=== PATIENT | female | born 1995 | race Caucasian/White ===

== ENCOUNTER 2017-08-08 15:32 | Emergency (ER) | payer OTHER ==
[2017-08-08 15:47] VITALS: BP 120/80; PULSE 85; RESP 16; TEMP 97.6
[2017-08-08] MEDS ORDERED: DIPH,PERTUS(ACELL)TETVAC-LF 0.5 ML VIAL IM ONE (15:51)
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
== END 2017-08-08 16:12 | disposition home or self-care (01) ==
LOC: EC 15:32
DX: T24.231A Burn of second degree of right lower leg, initial encounter (principal); Z23 Encounter for immunization; F17.200 Nicotine dependence, unspecified, uncomplicated; X19.XXXA Contact with other heat and hot substances, initial encounter; Y92.89 Other specified places as the place of occurrence of the external cause
CPT/HCPCS: 90471; 90715; 99283

== ENCOUNTER 2018-03-31 05:12 | Emergency (ER) | payer OTHER ==
[2018-03-31 05:20] VITALS: TEMP 97.6
[2018-03-31] MEDS ORDERED: SODIUM CHLORIDE 0.9% 1,000 ML IV STA (05:22)
[2018-03-31] MEDS ORDERED: LORazepam 2 MG/ML INJ IV STA (05:41)
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
[2018-03-31 06:02] LABS: Alcohol <10 mg/dL; Anion Gap 13 mmol/L; Blood Urea Nitrogen 14 mg/dL (7-17); Calcium 10.3 mg/dL (8.4-10.2); Carbon Dioxide 21 mmol/L (22-30); Chloride 107 mmol/L (98-107); Glucose 119 mg/dL (74-99); Potassium 3.5 mmol/L (3.5-5.1); Sodium 141 mmol/L (137-145)
[2018-03-31 06:45] LABS: Amphetamine Screen,Urine Not Detected (NotDetected); Barbiturate Screen,Urine Not Detected (NotDetected); Benzodiazepines Screen,Urine Not Detected (NotDetected); Cocaine Screen,Urine Not Detected (NotDetected); Methadone Screen, Urine Not Detected (NotDetected); Opiate Screen,Urine Not Detected (NotDetected); Oxycodone Screen, Urine Not Detected (NotDetected); Phencyclidine Screen,Urine Not Detected (NotDetected); Tricyclic Antidepressant,Urine Not Detected (NotDetected); Urn Cannabinoid Scrn Detected (NotDetected)
[2018-03-31 06:50] VITALS: BP 149/96; PULSE 75; RESP 16
== END 2018-03-31 08:23 | disposition home or self-care (01) ==
LOC: EC 05:12
DX: T43.641A Poisoning by ecstasy, accidental (unintentional), initial encounter (principal); R20.0 Anesthesia of skin; R51 Headache; R00.0 Tachycardia, unspecified; F17.200 Nicotine dependence, unspecified, uncomplicated
CPT/HCPCS: 99284 ×2; 96374 ×2; 96361 ×2; 96360; 99283; 36415; 93005; 80053; 80048; 85025; 81001; 81025; 80306; 87086; 87077; 87186; G0480; J2060; 80320

== ENCOUNTER 2018-03-31 14:28 | Emergency (ER) | payer OTHER ==
[2018-03-31 14:38] VITALS: BP 135/92; PULSE 128; RESP 18; TEMP 98
[2018-03-31] MEDS ORDERED: ALPRAZolam 1 MG TAB PO STA (14:50)
[2018-03-31] MEDS ORDERED: SODIUM CHLORIDE 0.9% 1,000 ML IV ONE (15:12)
[2018-03-31 15:32] LABS: Basophils # (A) 0.1 k/uL (0-0.2); Basophils % (A) 0 %; Eosinophils # (A) 0.1 k/uL (0-0.7); Eosinophils % (A) 1 %; HCT 43.7 % (34.0-46.0); HGB 14.4 gm/dL (11.4-16.0); Lymphocytes # (A) 1.7 k/uL (1.0-4.8); Lymphocytes % (A) 11 %; MCH 28.8 pg (25.0-35.0); MCHC 32.9 g/dL (31.0-37.0); MCV 87.4 fL (80.0-100.0); Mean Platelet Volume 6.9; Monocytes # (A) 1.1 k/uL (0-1.0); Monocytes % (A) 7 %; Neutrophils # (A) 11.8 k/uL (1.3-7.7); Neutrophils % (A) 79 %; Platelet Count 365 k/uL (150-450); RBC 5.01 m/uL (3.80-5.40); RDW 13.5 % (11.5-15.5); WBC 14.9 k/uL (4.0-11.0)
[2018-03-31 15:42] LABS: ALT 33 U/L (9-52); AST 30 U/L (14-36); Albumin 5.4 g/dL (3.5-5.0); Alkaline Phosphatase 65 U/L (38-126); Anion Gap 13 mmol/L; Blood Urea Nitrogen 9 mg/dL (7-17); Calcium 10.9 mg/dL (8.4-10.2); Carbon Dioxide 21 mmol/L (22-30); Chloride 106 mmol/L (98-107); Glucose 96 mg/dL (74-99); Potassium 3.7 mmol/L (3.5-5.1); Sodium 140 mmol/L (137-145); Total Bilirubin 1.3 mg/dL (0.2-1.3)
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
[2018-03-31 16:37] LABS: Appearance,Urine Cloudy (Clear); Bacteria,Urine Moderate /hpf; Bilirubin,Urine Negative (Negative); Blood,Urine Negative (Negative); Color,Urine Light Yellow; Glucose,Urine (UA) Negative (Negative); Hyaline Casts,Urine 1 /lpf (0-2); Ketones,Urine Negative (Negative); Leukocyte Esterase,Urine Negative (Negative); Nitrite,Urine Negative (Negative); Protein,Urine Negative (Negative); RBC,Urine <1 /hpf (0-5); Specific Gravity,Urine 1.007 (1.001-1.035); Squamous Epithelial Cell,Urine 3 /hpf (0-4); Urobilinogen,Urine <2.0 mg/dL (<2.0); WBC,Urine 6 /hpf (0-5)
== END 2018-03-31 17:10 | disposition home or self-care (01) ==
LOC: EC 14:28
DX: F15.10 Other stimulant abuse, uncomplicated (principal); D72.829 Elevated white blood cell count, unspecified; F41.9 Anxiety disorder, unspecified; F17.200 Nicotine dependence, unspecified, uncomplicated
CPT/HCPCS: 36415; 80053; 81001; 85025; 87086; 93005; 96360; 96361; 99283

== ENCOUNTER 2019-04-22 21:51 | Emergency (ER) | payer OTHER ==
[2019-04-22 22:42] LABS: Appearance,Urine Turbid (Clear); Bacteria,Urine Many /hpf; Bilirubin,Urine Negative (Negative); Blood,Urine Moderate (Negative); Color,Urine Yellow; Glucose,Urine (UA) Negative (Negative); Ketones,Urine Negative (Negative); Leukocyte Esterase,Urine Large (Negative); Mucus,Urine Many /hpf; Nitrite,Urine Positive (Negative); Protein,Urine 3+ (Negative); RBC,Urine 84 /hpf (0-5); Squamous Epithelial Cell,Urine 3 /hpf (0-4); Urobilinogen,Urine <2.0 mg/dL (<2.0); WBC,Urine >182 /hpf (0-5)
[2019-04-22] MEDS ORDERED: ACETAMINOPHEN TAB 325 MG TAB PO STA (23:41)
--- NOTE | 2019-04-22 23:43 | US ---
EXAMINATION TYPE: US renals and bladder DATE OF EXAM: 04/22/2019 COMPARISON: CT 2013 CLINICAL HISTORY: RUQ/flank pain. RUQ/flank pain x 11.5 hours. Hx kidney stones. Patient is 17 weeks . EXAM MEASUREMENTS: Right Kidney: 12.2 x 6.9 x 6.5 cm Left Kidney: 12.2 x 5.5 x 5.2 cm Right Kidney: Measures upper limits of normal. There appears to be hydronephrosis with anechoic area medially. Left Kidney: Measures upper limits of normal. Anechoic area seen lower pole: 1.2 x 1.1 x 1.1 cm. Bladder: Not fully distended. Appears to be anechoic. Bilateral Jets seen: No IMPRESSION: There is moderate right-sided hydronephrosis. No evidence of a solid renal mass. 10 mm cortical cyst lower pole left kidney. No renal atrophy.
--- NOTE | 2019-04-22 23:49 | ED ---
Abdominal Pain HPI - General Chief Complaint: Abdominal Pain Stated Complaint: 17 weeks prg/abd pain Time Seen by Provider: 04/22/19 23:33 Source: patient Mode of arrival: ambulatory Limitations: no limitations - History of Present Illness Complaint: flank pain Onset/Timin -: hour(s) Location: R flank Radiation: none Migration to: no migration Severity: moderate Quality: aching Consistency: constant Improves With: nothing Worsens With: nothing Associated Symptoms: dysuria - Related Data Patient : Yes Number of weeks : 17 Previous Rx's Medication Instructions Recorded Cephalexin [Keflex] 500 mg PO Q6HR #28 cap 04/23/19 Allergies Allergy/AdvReac Type Severity Reaction Status Date / Time No Known Allergies Allergy Verified 04/22/19 22:14 Review of Systems ROS Statement: Those systems with pertinent positive or pertinent negative responses have been documented in the HPI. ROS Other: All systems not noted in ROS Statement are negative. Constitutional: Denies: fever, chills Respiratory: Denies: cough, dyspnea Cardiovascular: Denies: chest pain, palpitations, edema Gastrointestinal: Reports: as per HPI, abdominal pain. Denies: nausea, vomitin g, diarrhea, constipation, melena, hematochezia Genitourinary: Reports: dysuria, frequency. Denies: hematuria, discharge, abnormal menses Musculoskeletal: Denies: back pain Skin: Denies: rash Neurological: Denies: headache, weakness, numbness Past Medical History Past Medical History: No Reported History Additional Past Medical History / Comment(s): kidney stones, History of Any Multi-Drug Resistant Organisms: None Reported Past Surgical History: Section Past Anesthesia/Blood Transfusion Reactions: No Reported Reaction Past Psychological History: No Psychological Hx Reported Smoking Status: Former smoker Past Alcohol Use History: None Reported Past Drug Use History: Marijuana - Past Family History Mother History Unknown: Yes General Exam Limitations: no limitations General appearance: alert, in no apparent distress Head exam: Present: atraumatic, normocephalic Eye exam: Present: normal appearance. Absent: scleral icterus, conjunctival injection ENT exam: Present: normal oropharynx Respiratory exam: Present: normal lung sounds bilaterally. Absent: respiratory distress, wheezes, rales, rhonchi, stridor Cardiovascular Exam: Present: regular rate, normal rhythm, normal heart sounds, systolic murmur. Absent: diastolic murmur, rubs, gallop GI/Abdominal exam: Present: soft, normal bowel sounds. Absent: distended, tenderness, guarding, rebound, rigid, organomegaly, mass, pulsatile mass, hernia Extremities exam: Present: normal inspection, normal capillary refill. Absent: pedal edema, calf tenderness Back exam: Present: normal inspection, CVA tenderness (R). Absent: CVA tenderness (L) Neurological exam: Present: alert, normal gait Skin exam: Present: warm, dry, intact, normal color. Absent: rash Course Vital Signs 04/22/19 04/23/19 22:12 00:09 Temperature 98.3 F 98.4 F Pulse Rate 100 98 Respiratory 18 16 Rate Blood Pressure 129/76 128/83 O2 Sat by Pulse 99 97 Oximetry Medical Decision Making - Lab Data Result diagrams: 04/22/19 23:50 04/22/19 23:50 Lab Results 04/22/19 04/22/19 04/22/19 Range/Units 22:15 23:50 23:50 WBC 14.7 H (3.8-10.6) k/uL RBC 3.93 (3.80-5.40) m/uL Hgb 12.3 (11.4-16.0) gm/dL Hct 34.7 (34.0-46.0) % MCV 88.2 (80.0-100.0) fL MCH 31.2 (25.0-35.0) pg MCHC 35.4 (31.0-37.0) g/dL RDW 13.6 (11.5-15.5) % Plt Count 278 (150-450) k/uL Neutrophils % 79 % Lymphocytes % 13 % Monocytes % 5 % Eosinophils % 2 % Basophils % 0 % Neutrophils # 11.5 H (1.3-7.7) k/uL Lymphocytes # 1.9 (1.0-4.8) k/uL Monocytes # 0.7 (0-1.0) k/uL Eosinophils # 0.2 (0-0.7) k/uL Basophils # 0.0 (0-0.2) k/uL Sodium 132 L (137-145) mmol/L Potassium 3.8 (3.5-5.1) mmol/L Chloride 105 (98-107) mmol/L Carbon Dioxide 20 L (22-30) mmol/L Anion Gap 7 mmol/L BUN 8 (7-17) mg/dL Creatinine 0.41 L (0.52-1.04) mg/dL Est GFR (CKD-EPI)AfAm >90 (>60 ml/min/1.73 sqM) Est GFR (CKD-EPI)NonAf >90 (>60 ml/min/1.73 sqM) Glucose 102 H (74-99) mg/dL Calcium 9.1 (8.4-10.2) mg/dL Total Bilirubin 0.4 (0.2-1.3) mg/dL AST 21 (14-36) U/L ALT 27 (4-34) U/L Alkaline Phosphatase 76 (38-126) U/L Total Protein 7.2 (6.3-8.2) g/dL Albumin 4.0 (3.5-5.0) g/dL Amylase <30 L (30-110) U/L Lipase 46 (23-300) U/L Urine Color Yellow Urine Appearance Turbid H (Clear) Urine pH 6.0 (5.0-8.0) Ur Specific [place] 1.020 (1.001-1.035) Urine Protein 3+ H (Negative) Urine Glucose (UA) Negative (Negative) Urine Ketones Negative (Negative) Urine Blood Moderate H (Negative) Urine Nitrite Positive H (Negative) Urine Bilirubin Negative (Negative) Urine Urobilinogen <2.0 (<2.0) mg/dL Ur Leukocyte Esterase Large H (Negative) Urine RBC 84 H (0-5) /hpf Urine WBC >182 H (0-5) /hpf Urine WBC Clumps Many H (None) /hpf Ur Squamous Epith Cells 3 (0-4) /hpf Urine Bacteria Many H (None) /hpf Urine Mucus Many H (None) /hpf Disposition Clinical Impression: , Urinary tract infection Disposition: HOME SELF-CARE Condition: Good Instructions (If sedation given, give patient instructions): Urinary Tract Infe ction in (ED) Prescriptions: Cephalexin [Keflex] 500 mg PO Q6HR #28 cap Is patient prescribed a controlled substance at d/c from ED?: No Referrals: Dorinda Gonzalez MD [Primary Care Provider] - 1-2 days Vasquez Tapia MD [STAFF PHYSICIAN] - 1-2 days
[2019-04-22 23:56] LABS: Basophils % (A) 0 %; Eosinophils # (A) 0.2 k/uL (0-0.7); Eosinophils % (A) 2 %; HCT 34.7 % (34.0-46.0); HGB 12.3 gm/dL (11.4-16.0); Lymphocytes # (A) 1.9 k/uL (1.0-4.8); Lymphocytes % (A) 13 %; MCH 31.2 pg (25.0-35.0); MCHC 35.4 g/dL (31.0-37.0); MCV 88.2 fL (80.0-100.0); Mean Platelet Volume 7.1; Monocytes # (A) 0.7 k/uL (0-1.0); Monocytes % (A) 5 %; Neutrophils # (A) 11.5 k/uL (1.3-7.7); Neutrophils % (A) 79 %; Platelet Count 278 k/uL (150-450); RBC 3.93 m/uL (3.80-5.40); RDW 13.6 % (11.5-15.5); WBC 14.7 k/uL (3.8-10.6)
[2019-04-23 00:05] LABS: ALT 27 U/L (4-34); AST 21 U/L (14-36); African American GFR (CKD) >90 (>60 ml/min/1.73 sqM); Alkaline Phosphatase 76 U/L (38-126); Amylase <30 U/L (30-110); Anion Gap 7 mmol/L; Blood Urea Nitrogen 8 mg/dL (7-17); Calcium 9.1 mg/dL (8.4-10.2); Carbon Dioxide 20 mmol/L (22-30); Chloride 105 mmol/L (98-107); Glucose 102 mg/dL (74-99); Non-African American GFR(CKD) >90 (>60 ml/min/1.73 sqM); Potassium 3.8 mmol/L (3.5-5.1); Sodium 132 mmol/L (137-145); Total Bilirubin 0.4 mg/dL (0.2-1.3); Total Protein 7.2 g/dL (6.3-8.2)
[2019-04-23 00:09] VITALS: BP 128/83; PULSE 98; RESP 16; TEMP 98.4
--- NOTE | 2019-04-23 06:56 | P.PN ---
Progress Note - Text Progress Note Date: 04/23/19 Please see dictated emergency room note on this patient. I was contacted by the emergency room physician in consultation for possible pyelonephritis. Patient is a 23-year-old 2 para 1 female who apparently has not sought any care who presented in the emergency department with complaints of back pain. Patient's urinalysis was suggestive of a urinary tract infection. Patient is afebrile and her white count although elevated is not abnormal for . I advised a dose of IV Ancef and a 7 day course of oral Keflex. I also advised a complete obstetrical ultrasound. I advised the emergency room physician the patient should return if symptomatology is not improving, fevers, chills, or signs or symptoms of pyelonephritis. At this time there is no indication for admission as an inpatient.
== END 2019-04-23 01:47 | disposition home or self-care (01) ==
LOC: EC 21:51
DX: O23.42 Unspecified infection of urinary tract in pregnancy, second trimester (principal); Z87.891 Personal history of nicotine dependence; Z3A.17 17 weeks gestation of pregnancy
CPT/HCPCS: 36415; 80053; 82150; 83690; 85025; 81001; 87086; 76770; 96365; 99284; J0696; 87077; 87186

== ENCOUNTER 2020-04-21 04:09 | Inpatient (IN) | payer OTHER ==
[2020-04-21 05:03] LABS: Basophils # (A) 0.1 k/uL (0-0.2); Basophils % (A) 0 %; Eosinophils # (A) 0.1 k/uL (0-0.7); Eosinophils % (A) 0 %; HCT 40.3 % (34.0-46.0); HGB 13.2 gm/dL (11.4-16.0); Lymphocytes # (A) 2.2 k/uL (1.0-4.8); Lymphocytes % (A) 13 %; MCH 28.2 pg (25.0-35.0); MCHC 32.8 g/dL (31.0-37.0); MCV 85.8 fL (80.0-100.0); Mean Platelet Volume 7.5; Monocytes # (A) 0.6 k/uL (0-1.0); Monocytes % (A) 4 %; Neutrophils # (A) 13.7 k/uL (1.3-7.7); Neutrophils % (A) 82 %; Platelet Count 365 k/uL (150-450); RBC 4.69 m/uL (3.80-5.40); RDW 15.9 % (11.5-15.5); WBC 16.8 k/uL (3.8-10.6)
[2020-04-21 05:13] LABS: Appearance,Urine Clear (Clear); Bacteria,Urine Moderate /hpf; Bilirubin,Urine Negative (Negative); Blood,Urine Negative (Negative); Color,Urine Yellow; Glucose,Urine (UA) Negative (Negative); Ketones,Urine 1+ (Negative); Leukocyte Esterase,Urine Moderate (Negative); Mucus,Urine Occasional /hpf; Nitrite,Urine Positive (Negative); PH, Urine 5.5 (5.0-8.0); Protein,Urine Trace (Negative); RBC,Urine 5 /hpf (0-5); Specific Gravity,Urine 1.023 (1.001-1.035); Squamous Epithelial Cell,Urine 1 /hpf (0-4); Urobilinogen,Urine <2.0 mg/dL (<2.0); WBC,Urine 31 /hpf (0-5)
[2020-04-21 05:16] LABS: ALT 14 U/L (4-34); AST 17 U/L (14-36); African American GFR (CKD) >90 (>60 ml/min/1.73 sqM); Albumin 4.4 g/dL (3.5-5.0); Alkaline Phosphatase 47 U/L (38-126); Amylase 32 U/L (30-110); Anion Gap 10 mmol/L; Blood Urea Nitrogen 14 mg/dL (7-17); C Reactive Protein <5.0 mg/L (<10.0); Calcium 9.2 mg/dL (8.4-10.2); Carbon Dioxide 20 mmol/L (22-30); Chloride 106 mmol/L (98-107); Glucose 111 mg/dL (74-99); Lipase 82 U/L (23-300); Non-African American GFR(CKD) >90 (>60 ml/min/1.73 sqM); Sodium 136 mmol/L (137-145); Total Bilirubin 0.4 mg/dL (0.2-1.3); Total Protein 7.3 g/dL (6.3-8.2)
--- NOTE | 2020-04-21 05:52 | ED ---
Abdominal Pain HPI - General Chief Complaint: Abdominal Pain Stated Complaint: Abdominal Pain Time Seen by Provider: 04/21/20 04:36 Source: patient Mode of arrival: ambulatory Limitations: no limitations - History of Present Illness Initial Comments: Patient is 24-year-old woman presenting to be evaluated for acute onset of right lower quadrant pain. Patient denies any recent trauma. Patient is not having gastrointestinal symptoms, no nausea or vomiting. No change in bowel movements. She has not noted any change in urination. Patient's last menstrual period was approximately April 03 and seems normal to her. Patient denies any signs or symptoms of STI. No vaginal discharge. No dyspareunia Complaint: abdominal pain -: hour(s) Location: RLQ Radiation: none Migration to: no migration Severity: moderate Quality: aching Consistency: constant Improves With: nothing Worsens With: movement, other (Palpation) Associated Symptoms: denies other symptoms - Related Data LMP (females 10-50): 3 weeks Home Medications Medication Instructions Recorded Confirmed No Known Home Medications 04/21/20 04/21/20 Allergies Allergy/AdvReac Type Severity Reaction Status Date / Time No Known Allergies Allergy Verified 04/21/20 06:57 Review of Systems ROS Statement: Those systems with pertinent positive or pertinent negative responses have been documented in the HPI. ROS Other: All systems not noted in ROS Statement are negative. Constitutional: Denies: fever, chills Respiratory: Denies: cough, dyspnea Cardiovascular: Denies: chest pain, palpitations, edema Gastrointestinal: Reports: abdominal pain. Denies: nausea, vomiting, diarrhea, constipation, melena, hematochezia Genitourinary: Denies: dysuria, hematuria Musculoskeletal: Denies: back pain Skin: Denies: rash Neurological: Denies: headache Past Medical History Past Medical History: No Reported History Additional Past Medical History / Comment(s): kidney stones, History of Any Multi-Drug Resistant Organisms: None Reported Past Surgical History: Section Past Anesthesia/Blood Transfusion Reactions: No Reported Reaction Past Psychological History: No Psychological Hx Reported Smoking Status: Current every day smoker Past Alcohol Use History: Occasional Past Drug Use History: Marijuana - Past Family History Mother History Unknown: Yes Father Family Medical History: No Reported History General Exam Limitations: no limitations General appearance: alert, in no apparent distress Head exam: Present: atraumatic, normocephalic Eye exam: Present: normal appearance. Absent: scleral icterus, conjunctival injection ENT exam: Present: normal oropharynx Neck exam: Present: normal inspection Respiratory exam: Present: normal lung sounds bilaterally. Absent: respiratory distress, wheezes, rales, rhonchi, stridor Cardiovascular Exam: Present: regular rate, normal rhythm, normal heart sounds. Absent: systolic murmur, diastolic murmur, rubs, gallop GI/Abdominal exam: Present: soft, tenderness (Moderate right lower quadrant tenderness), normal bowel sounds. Absent: distended, guarding, rebound, rigid, mass, pulsatile mass, hernia Extremities exam: Present: normal inspection, normal capillary refill. Absent: pedal edema, calf tenderness Back exam: Present: normal inspection. Absent: CVA tenderness (R), CVA tenderness (L) Neurological exam: Present: alert Skin exam: Present: warm, dry, intact, normal color. Absent: rash Course Vital Signs 04/21/20 04/21/20 04/21/20 04:11 05:18 06:15 Temperature 97.6 F Pulse Rate 110 H 72 86 Respiratory 18 18 18 Rate Blood Pressure 125/88 128/90 147/97 O2 Sat by Pulse 99 98 99 Oximetry 04/21/20 07:05 Temperature Pulse Rate 76 Respiratory 20 Rate Blood Pressure 121/90 O2 Sat by Pulse 97 Oximetry Medical Decision Making - Medical Decision Making Patient is 24-year-old woman with acute onset right lower quadrant pain. Found to have moderate amount of hemoperitoneum. At this point suspect hemorrhagic cyst though considering other acute causes of hemoperitoneum. Patient is admitted for symptom control as well as consultations with general surgery and with gynecology. At the time of shift change, the patient's ultrasound is pending - Lab Data Result diagrams: 04/21/20 04:46 04/21/20 04:46 Lab Results 04/21/20 04/21/20 04/21/20 Range/Units 04:46 04:46 04:46 WBC 16.8 H (3.8-10.6) k/uL RBC 4.69 (3.80-5.40) m/uL Hgb 13.2 (11.4-16.0) gm/dL Hct 40.3 (34.0-46.0) % MCV 85.8 (80.0-100.0) fL MCH 28.2 (25.0-35.0) pg MCHC 32.8 (31.0-37.0) g/dL RDW 15.9 H (11.5-15.5) % Plt Count 365 (150-450) k/uL MPV 7.5 Neutrophils % 82 % Lymphocytes % 13 % Monocytes % 4 % Eosinophils % 0 % Basophils % 0 % Neutrophils # 13.7 H (1.3-7.7) k/uL Lymphocytes # 2.2 (1.0-4.8) k/uL Monocytes # 0.6 (0-1.0) k/uL Eosinophils # 0.1 (0-0.7) k/uL Basophils # 0.1 (0-0.2) k/uL Sodium (137-145) mmol/L Potassium (3.5-5.1) mmol/L Chloride (98-107) mmol/L Carbon Dioxide (22-30) mmol/L Anion Gap mmol/L BUN (7-17) mg/dL Creatinine (0.52-1.04) mg/dL Est GFR (CKD-EPI)AfAm (>60 ml/min/1.73 sqM) Est GFR (CKD-EPI)NonAf (>60 ml/min/1.73 sqM) Glucose (74-99) mg/dL Calcium (8.4-10.2) mg/dL Total Bilirubin (0.2-1.3) mg/dL AST (14-36) U/L ALT (4-34) U/L Alkaline Phosphatase (38-126) U/L C-Reactive Protein (<10.0) mg/L Total Protein (6.3-8.2) g/dL Albumin (3.5-5.0) g/dL Amylase (30-110) U/L Lipase (23-300) U/L Urine Color Yellow Urine Appearance Clear (Clear) Urine pH 5.5 (5.0-8.0) Ur Specific [place] 1.023 (1.001-1.035) Urine Protein Trace H (Negative) Urine Glucose (UA) Negative (Negative) Urine Ketones 1+ H (Negative) Urine Blood Negative (Negative) Urine Nitrite Positive H (Negative) Urine Bilirubin Negative (Negative) Urine Urobilinogen <2.0 (<2.0) mg/dL Ur Leukocyte Esterase Moderate H (Negative) Urine RBC 5 (0-5) /hpf Urine WBC 31 H (0-5) /hpf Ur Squamous Epith Cells 1 (0-4) /hpf Urine Bacteria Moderate H (None) /hpf Urine Mucus Occasional H (None) /hpf Urine HCG, Qual Not Detected (Not Detectd) 04/21/20 Range/Units 04:46 WBC (3.8-10.6) k/uL RBC (3.80-5.40) m/uL Hgb (11.4-16.0) gm/dL Hct (34.0-46.0) % MCV (80.0-100.0) fL MCH (25.0-35.0) pg MCHC (31.0-37.0) g/dL RDW (11.5-15.5) % Plt Count (150-450) k/uL MPV Neutrophils % % Lymphocytes % % Monocytes % % Eosinophils % % Basophils % % Neutrophils # (1.3-7.7) k/uL Lymphocytes # (1.0-4.8) k/uL Monocytes # (0-1.0) k/uL Eosinophils # (0-0.7) k/uL Basophils # (0-0.2) k/uL Sodium 136 L (137-145) mmol/L Potassium 4.0 (3.5-5.1) mmol/L Chloride 106 (98-107) mmol/L Carbon Dioxide 20 L (22-30) mmol/L Anion Gap 10 mmol/L BUN 14 (7-17) mg/dL Creatinine 0.60 (0.52-1.04) mg/dL Est GFR (CKD-EPI)AfAm >90 (>60 ml/min/1.73 sqM) Est GFR (CKD-EPI)NonAf >90 (>60 ml/min/1.73 sqM) Glucose 111 H (74-99) mg/dL Calcium 9.2 (8.4-10.2) mg/dL Total Bilirubin 0.4 (0.2-1.3) mg/dL AST 17 (14-36) U/L ALT 14 (4-34) U/L Alkaline Phosphatase 47 (38-126) U/L C-Reactive Protein <5.0 (<10.0) mg/L Total Protein 7.3 (6.3-8.2) g/dL Albumin 4.4 (3.5-5.0) g/dL Amylase 32 (30-110) U/L Lipase 82 (23-300) U/L Urine Color Urine Appearance (Clear) Urine pH (5.0-8.0) Ur Specific [place] (1.001-1.035) Urine Protein (Negative) Urine Glucose (UA) (Negative) Urine Ketones (Negative) Urine Blood (Negative) Urine Nitrite (Negative) Urine Bilirubin (Negative) Urine Urobilinogen (<2.0) mg/dL Ur Leukocyte Esterase (Negative) Urine RBC (0-5) /hpf Urine WBC (0-5) /hpf Ur Squamous Epith Cells (0-4) /hpf Urine Bacteria (None) /hpf Urine Mucus (None) /hpf Urine HCG, Qual (Not Detectd) Disposition Clinical Impression: Abdominal pain, Hemoperitoneum Disposition: ADMITTED IP TO THIS [facility] Condition: Good Is patient prescribed a controlled substance at d/c from ED?: No
--- NOTE | 2020-04-21 06:10 | CT ---
EXAM: CT Abdomen and Pelvis Without Intravenous Contrast CLINICAL HISTORY: ITS.REASON CT Reason: RLQ pain TECHNIQUE: Axial computed tomography images of the abdomen and pelvis without intravenous contrast. CTDI is 6.37 mGy and DLP is 373.9 mGy-cm. This CT exam was performed using one or more of the following dose reduction techniques: automated exposure control, adjustment of the mA and/or kV according to patient size, and/or use of iterative reconstruction technique. COMPARISON: 02/19/2014 FINDINGS: Lung bases: Unremarkable. No mass. No consolidation. ABDOMEN: Liver: Unremarkable. Gallbladder and bile ducts: Unremarkable. No calcified stones. No ductal dilation. Pancreas: Unremarkable. No ductal dilation. Spleen: Unremarkable. No splenomegaly. Adrenals: Unremarkable. No mass. Kidneys and ureters: Nonobstructing left renal calculus. Stomach and bowel: Unremarkable. No obstruction. No mucosal thickening. PELVIS: Appendix: Normal appendix. Bladder: Unremarkable. No stones. Reproductive: Unremarkable as visualized. ABDOMEN and PELVIS: Intraperitoneal space: Moderate amount of dense fluid within the abdomen and pelvis. Most hyperdense component within the pelvis, likely reflecting source in the pelvis. No free air. Bones/joints: No acute fracture. No dislocation. Soft tissues: Small fat-containing umbilical hernia Vasculature: Unremarkable. No abdominal aortic aneurysm. Lymph nodes: Unremarkable. No enlarged lymph nodes. IMPRESSION: 1. Moderate amount of dense fluid within the abdomen and pelvis. Most hyperdense component within the pelvis, likely reflecting source in the pelvis. Differential considerations include ruptured hemorrhagic cyst, ruptured ectopic , traumatic or other etiology. Correlate and consider follow-up. Limited evaluation for active bleeding on this noncontrast study. 2. Normal appendix. 3. Nonobstructing left renal calculus. <MYCVCSECTION> Communications: 04/21/20 06:05 Call Doctor Regarding Above results, called Dr. Adams on 04/21 06:05 (-05:00)
[2020-04-21] MEDS ORDERED: MORPHINE SULFATE 4 MG/ML SYRINGE IV STA (06:12)
[2020-04-21] MEDS ORDERED: MORPHINE SULFATE 4 MG/ML SYRINGE IV PRN (06:24)
[2020-04-21] MEDS ORDERED: NALOXONE 0.4 MG/ML 1 ML VIAL IV PRN (06:24)
[2020-04-21] MEDS ORDERED: ONDANSETRON 4 MG/2 ML VIAL IVP PRN (06:24)
[2020-04-21] MEDS: SODIUM CHLORIDE 0.9% 1,000 ML IV SCH ×2 (07:03→17:57)
[2020-04-21] MEDS: FAMOTIDINE 20 MG/2 ML VIAL IV SCH ×2 (07:50→18:51)
--- NOTE | 2020-04-21 07:56 | US ---
EXAMINATION TYPE: US transvaginal DATE OF EXAM: 04/21/2020 COMPARISON: NONE CLINICAL HISTORY: 24-year-old female RLQ pain. History of tubal ligation. TECHNIQUE: Transvaginal (TV). Date of LMP: 04-02-20 FINDINGS: EXAM MEASUREMENTS: Uterus: 10.6 x 5.0 x 5.5 cm Endometrial Stripe: 1.5 cm Right Ovary: difficult to differentiate from mass Left Ovary: 2.6 x 2.5 x 1.9 cm. There are is satisfactory arterial and venous flow demonstrated. 1. Uterus: wnl. Cervical nabothian cyst measuring up to 8 mm. 2. Endometrium: thickened Booster Assembler notes: Large complex mass in cul de sac. It is difficult to separate mass from ovaries. There is probable blood flow in both ovaries. Right ovary more difficult to separate from mass than left. Mass measures 9.4 x 5.0 x 8.3cm IMPRESSION: The high school social science teacher indicates a cul-de-sac mass measuring up to 9.4 cm which is difficult to differentiat e from the ovaries. Correlate with hemoglobin levels as this is suspicious for hemorrhagic pelvic flu id. Correlate to ensure a negative status to exclude ruptured ectopic . A ruptured hemorrhagic cyst is in the differential.
[2020-04-21] MEDS ORDERED: ACETAMINOPHEN IV (For NPO) 1,000 MG in EMPTY BAG 1 BAG IVPB PRN (08:11)
[2020-04-21] MEDS ORDERED: IBUPROFEN IV 800 MG in SODIUM CHLORIDE 0.9% 250 ML IV PRN (08:17)
--- NOTE | 2020-04-21 08:17 | P.OBCN ---
History of Present Illness Consult date: 04/21/20 Requesting physician: Titus Min Reason for consult: pelvic pain, ovarian cyst, other (Hemoperitoneum most likely secondary to ovarian cyst rupture) Chief complaint: Pelvic pain History of present illness: This is a 24-year-old non patient that presented to the hospital with complaints of increasing pelvic pain. Patient states onset of pain was around midnight. Patient notes her last menstrual period to be April 03. Patient does have a history of a tubal ligation that was completed with her last proximally 7 months ago. Patient states her menstrual cycles are regular every month lasting 2-3 days. Patient is not on oral contraceptive pills at this time. Patient states the pain was severe in nature, and controlled currently with IV morphine. Review of Systems Constitutional: Denies chills, Denies fatigue, Denies fever Ears, nose, mouth and throat: Denies headache Cardiovascular: Denies leg edema Respiratory: Denies dyspnea Gastrointestinal: Denies nausea, Denies vomiting Genitourinary: Denies Menstruation: Reports menses 1-7 days Past Medical History Past Medical History: No Reported History Additional Past Medical History / Comment(s): kidney stones, History of Any Multi-Drug Resistant Organisms: None Reported Past Surgical History: Section Past Anesthesia/Blood Transfusion Reactions: No Reported Reaction Past Psychological History: No Psychological Hx Reported Smoking Status: Current every day smoker Past Alcohol Use History: Occasional Past Drug Use History: Marijuana - Past Family History Mother History Unknown: Yes Medications and Allergies Home Medications Medication Instructions Recorded Confirmed Type No Known Home Medications 04/21/20 04/21/20 History Allergies Allergy/AdvReac Type Severity Reaction Status Date / Time No Known Allergies Allergy Verified 04/21/20 06:57 Exam Osteopathic Statement: *. No significant issues noted on an osteopathic structural exam other than those noted in the History and Physical/Consult. Vital Signs Temp Pulse Resp BP Pulse Ox 04/21/20 07:05 76 20 121/90 97 04/21/20 06:15 86 18 147/97 99 04/21/20 05:18 72 18 128/90 98 04/21/20 04:11 97.6 F 110 H 18 125/88 99 Intake and Output 04/20/20 04/21/20 04/21/20 22:59 06:59 14:59 Other: Weight 58.967 kg Targeted physical exam is performed in this date in general this a well- nourished well-developed non female in no acute distress, breathing is noted to be nonlabored, heart has regular rate and rhythm, abdomen is soft and nontender to palpation. Pelvic exam is deferred as it was completed down in the emergency department. Vital signs are noted to be stable. Results Result Diagrams: 04/21/20 04:46 04/21/20 04:46 Abnormal Lab Results - Last 24 Hours (Table) 04/21/20 04/21/20 04/21/20 Range/Units 04:46 04:46 04:46 WBC 16.8 H (3.8-10.6) k/uL RDW 15.9 H (11.5-15.5) % Neutrophils # 13.7 H (1.3-7.7) k/uL Sodium 136 L (137-145) mmol/L Carbon Dioxide 20 L (22-30) mmol/L Glucose 111 H (74-99) mg/dL Urine Protein Trace H (Negative) Urine Ketones 1+ H (Negative) Urine Nitrite Positive H (Negative) Ur Leukocyte Esterase Moderate H (Negative) Urine WBC 31 H (0-5) /hpf Urine Bacteria Moderate H (None) /hpf Urine Mucus Occasional H (None) /hpf Assessment and Plan (1) Abdominal pain Current Visit: Yes Status: Acute Code(s): R10.9 - UNSPECIFIED ABDOMINAL PAIN SNOMED Code(s): 75353347 (2) Hemoperitoneum Current Visit: Yes Status: Acute Code(s): K66.1 - HEMOPERITONEUM SNOMED Code(s): 547628097 (3) UTI (urinary tract infection) Current Visit: Yes Status: Acute Code(s): N39.0 - URINARY TRACT INFECTION, SITE NOT SPECIFIED SNOMED Code(s): 10868454 Plan: This pleasant 24-year-old non patient presented to the records department with complaints of increasing pelvic/abdominal pain. On computed tomography scan a moderate amount of pelvic fluid was noted consistent with pelvic pathology, ultrasound was completed consistent with hemoperitoneum. Awaiting final radiology report. On exam patient's abdomen is soft, nonsurgical. Her hemoglobin is 13 and stable. Patient appears very stable on physical exam. We will monitor closely. Did offer IV Caldalor/Ofirmev versus morphine for discomfort. On review of emergent department records UTI was noted therefore IV antibiotics are begun. Findings of CAT scan and ultrasound are reviewed with patient and questions are answered. I did discuss with the patient at this time a do not feel surgical intervention is needed as her exam is benign. will await final US reading from radiology.
--- NOTE | 2020-04-21 11:31 | P.GSCN ---
History of Present Illness Consult date: 04/21/20 History of present illness: CHIEF COMPLAINT: Abdominal pain HISTORY OF PRESENT ILLNESS: This is a 24-year-old female with a known history of kidney stones and nicotine dependence. Patient presented to the emergency room after having acute sudden onset of severe right lower quadrant abdominal pain last night. Her last winter cycle was April 03. She has a history of tubal ligation. She denies any nausea or vomiting. She denies any fever or chills. She denies any vaginal discharge. She has been admitted to the hospital for concerns of possible ruptured ovarian cyst. She does report that her pain is controlled with pain medication. PAST MEDICAL HISTORY: See list. PAST SURGICAL HISTORY: See list. MEDICATIONS: See list. ALLERGIES: See list. SOCIAL HISTORY: No illicit drug use. REVIEW OF SYSTEMS: CONSTITUTIONAL: Denies fever or chills. HEENT: Denies blurred vision, vision changes, or eye pain. Denies hemoptysis CARDIOVASCULAR: Denies chest pain or pressure. RESPIRATORY: No shortness of breath. GASTROINTESTINAL: See HPI for pertinent findings HEMATOLOGIC: Denies bleeding disorders. GENITOURINARY: Denies any blood in urine or increased urinary frequency. SKIN: Denies pruitis. Denies rash. PHYSICAL EXAM: VITAL SIGNS: Reviewed GENERAL: Well-developed in no acute distress. HEENT: No sclera icterus. Extraocular movements grossly intact. Moist buccal mucosa. Head is atraumatic, normocephalic. No nasal drainage. ABDOMEN: Soft. Nondistended. Tenderness with palpation right lower quadrant NEUROLOGIC: Alert and oriented. Cranial nerves II through XII grossly intact. LABORATORY DATA: WBC 16.8 hemoglobin 13.2 creatinine 0.60 LFTs normal lipase normal Urinalysis shows no evidence of infection Urine hCG not detected IMAGING: Computed tomography scan of the abdomen and pelvis showing moderate amount of dense fluid within the abdomen and pelvis. Most hyperdense component within the pelvis, likely reflecting source in the pelvis. Differential considerations include ruptured hemorrhagic cyst, ruptured ectopic , dramatic or other etiology. Normal appendix. Nonobstructing left renal calculus. Transvaginal ultrasound cul-de-sac mass measuring up to 9.4 cm which is difficult to different a trait from the ovaries. Correlate with hemoglobin levels as this is suspicious for hemorrhagic pelvic fluid. A ruptured hemorrhagic cyst is in the differential. ASSESSMENT: 1. Severe right lower quadrant abdominal pain likely due to ruptured ovarian cyst 2. 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 Signing provider agrees with the documented findings, assessment, and plan of care. Past Medical History Past Medical History: No Reported History Additional Past Medical History / Comment(s): kidney stones, History of Any Multi-Drug Resistant Organisms: None Reported Past Surgical History: Section Past Anesthesia/Blood Transfusion Reactions: No Reported Reaction Past Psychological History: No Psychological Hx Reported Smoking Status: Current every day smoker Past Alcohol Use History: Occasional Past Drug Use History: Marijuana - Past Family History Father Family Medical History: No Reported History Mother History Unknown: Yes Family Medical History: No Reported History Medications and Allergies Home Medications Medication Instructions Recorded Confirmed Type No Known Home Medications 04/21/20 04/21/20 History Allergies Allergy/AdvReac Type Severity Reaction Status Date / Time No Known Allergies Allergy Verified 04/21/20 06:57 Surgical - Exam Vital Signs Temp Pulse Resp BP Pulse Ox 97.6 F 110 H 18 125/88 99 04/21/20 04:11 04/21/20 04:11 04/21/20 04:11 04/21/20 04:11 04/21/20 04:11 Results - Labs 04/21/20 11:48 04/21/20 04:46 Abnormal Lab Results - Last 24 Hours (Table) 04/21/20 04/21/20 04/21/20 Range/Units 04:46 04:46 04:46 WBC 16.8 H (3.8-10.6) k/uL RDW 15.9 H (11.5-15.5) % Neutrophils # 13.7 H (1.3-7.7) k/uL Sodium 136 L (137-145) mmol/L Carbon Dioxide 20 L (22-30) mmol/L Glucose 111 H (74-99) mg/dL Urine Protein Trace H (Negative) Urine Ketones 1+ H (Negative) Urine Nitrite Positive H (Negative) Ur Leukocyte Esterase Moderate H (Negative) Urine WBC 31 H (0-5) /hpf Urine Bacteria Moderate H (None) /hpf Urine Mucus Occasional H (None) /hpf Diabetes panel 04/21/20 Range/Units 04:46 Sodium 136 L (137-145) mmol/L Potassium 4.0 (3.5-5.1) mmol/L Chloride 106 (98-107) mmol/L Carbon Dioxide 20 L (22-30) mmol/L BUN 14 (7-17) mg/dL Creatinine 0.60 (0.52-1.04) mg/dL Glucose 111 H (74-99) mg/dL Calcium 9.2 (8.4-10.2) mg/dL AST 17 (14-36) U/L ALT 14 (4-34) U/L Alkaline Phosphatase 47 (38-126) U/L Total Protein 7.3 (6.3-8.2) g/dL Albumin 4.4 (3.5-5.0) g/dL Calcium panel 04/21/20 Range/Units 04:46 Calcium 9.2 (8.4-10.2) mg/dL Albumin 4.4 (3.5-5.0) g/dL Pituitary panel 04/21/20 Range/Units 04:46 Sodium 136 L (137-145) mmol/L Potassium 4.0 (3.5-5.1) mmol/L Chloride 106 (98-107) mmol/L Carbon Dioxide 20 L (22-30) mmol/L BUN 14 (7-17) mg/dL Creatinine 0.60 (0.52-1.04) mg/dL Glucose 111 H (74-99) mg/dL Calcium 9.2 (8.4-10.2) mg/dL Adrenal panel 04/21/20 Range/Units 04:46 Sodium 136 L (137-145) mmol/L Potassium 4.0 (3.5-5.1) mmol/L Chloride 106 (98-107) mmol/L Carbon Dioxide 20 L (22-30) mmol/L BUN 14 (7-17) mg/dL Creatinine 0.60 (0.52-1.04) mg/dL Glucose 111 H (74-99) mg/dL Calcium 9.2 (8.4-10.2) mg/dL Total Bilirubin 0.4 (0.2-1.3) mg/dL AST 17 (14-36) U/L ALT 14 (4-34) U/L Alkaline Phosphatase 47 (38-126) U/L Total Protein 7.3 (6.3-8.2) g/dL Albumin 4.4 (3.5-5.0) g/dL
[2020-04-21 12:01] LABS: MCHC 33.3 g/dL (31.0-37.0); Mean Platelet Volume 7.5; Platelet Count 296 k/uL (150-450); RBC 4.14 m/uL (3.80-5.40); RDW 15.7 % (11.5-15.5); WBC 11.2 k/uL (3.8-10.6)
--- NOTE | 2020-04-21 12:50 | P.HPIM ---
History of Present Illness This is a pleasant 24 years old female with no significant past medical history. She smokes cigarettes and marijuana with occasional alcohol. 2014 her severe dissection was complicated by postoperative hemorrhage secondary to bleeding Mr. which needed second exploratory laparotomy with bleeding controlled and bleeding vessel was clipped. She does not follow up with PCP This time she presents because of severe right lower quadrant pain, nonradiating started last night, felt like sharp associated with nausea but no vomiting. No diarrhea. She had little dysuria yesterday She smokes few cigarettes a day here and there, she is counseled and agrees to quit but denies nicotine patch. She drinks alcohol occasionally and she denies illicit tracts Vital signs stable. Labs showed leukocytosis of 16.8 K, looks like patient has chronic leukocytosis and 2014 at 12-21k and in 2018 around 14 K. Hemoglobin is normal at 13.2 BMP and liver enzymes are not elevated, lipase and amylase are within reference range, C-reactive protein is less than 5 and liver enzymes not elevated AST and ALT. Urine analysis is suspicious for infections with leukocyte esterase moderate and increased urine WBC 31. Coronal Verres not detected and urine hCG is not detected CT of the abdomen and pelvis with IV contrast: Nonobstructing left renal calculus intraperitoneally there is moderate amount of dense fluid within the abdomen and pelvis. Most hyperdense competent within the pelvis likely reflecting source in the pelvis and differential diagnosis included ruptured hemorrhagic cyst, ruptured ectopic , trauma or others per radiologist Transvaginal ultrasound: Cul-de-sac mass measuring up to 9.4 cm which is significant to differentiate from the ovaries. Suspicious for hemorrhagic fluid. Alumni Secretary evaluated the patient, patient has history of tubal ligation related to her last section about 7 months ago.no need for surgical intervention per Alumni Secretary and most likely patient had hemoperitoneum secondary to ruptured ovarian cyst In the emergency room patient was started on ceftriaxone 1 and cefazolin and normal saline at 100 mL per hour. Review of Systems CONSTITUTIONAL: No fever, no malaise, no fatigue. HEENT: No recent visual problems or hearing problems. Denied any sore throat. CARDIOVASCULAR: No orthopnea, PND, no palpitations, no syncope. PULMONARY: No shortness of breath, no cough, no hemoptysis. GASTROINTESTINAL: No diarrhea, no vomiting. Normoactive bowel sounds. NEUROLOGICAL: No headaches, no weakness, no numbness. HEMATOLOGICAL: Denies any bleeding or petechiae. GENITOURINARY: Denies any burning micturition, frequency, or urgency. MUSCULOSKELETAL/RHEUMATOLOGICAL: Denies any joint pain, swelling, or any muscle pain. ENDOCRINE: Denies any polyuria or polydipsia. Past Medical History Past Medical History: No Reported History Additional Past Medical History / Comment(s): kidney stones, History of Any Multi-Drug Resistant Organisms: None Reported Past Surgical History: Section Past Anesthesia/Blood Transfusion Reactions: No Reported Reaction Past Psychological History: No Psychological Hx Reported Smoking Status: Current every day smoker Past Alcohol Use History: Occasional Past Drug Use History: Marijuana - Past Family History Father Family Medical History: No Reported History Mother History Unknown: Yes Family Medical History: No Reported History Medications and Allergies Home Medications Medication Instructions Recorded Confirmed Type No Known Home Medications 04/21/20 04/21/20 History Allergies Allergy/AdvReac Type Severity Reaction Status Date / Time No Known Allergies Allergy Verified 04/21/20 06:57 Physical Exam Vitals: Vital Signs Temp Pulse Pulse Resp BP BP Pulse Ox 04/21/20 08:09 98.3 F 63 16 115/71 96 04/21/20 07:05 76 20 121/90 97 04/21/20 06:15 86 18 147/97 99 04/21/20 05:18 72 18 128/90 98 04/21/20 04:11 97.6 F 110 H 18 125/88 99 Intake and Output 04/20/20 04/21/20 04/21/20 22:59 06:59 14:59 Other: Weight 58.967 kg 61.9 kg GENERAL: The patient is alert and oriented x3, not in any acute distress. Well developed, well nourished. HEENT: Pupils are round and equally reacting to light. EOMI. No scleral icterus. No conjunctival pallor. Normocephalic, atraumatic. No pharyngeal erythema. No thyromegaly. CARDIOVASCULAR: S1 and S2 present. No murmurs, rubs, or gallops. PULMONARY: Chest is clear to auscultation, no wheezing or crackles. -ABDOMEN: Soft, right lower quadrant tenderness with no rebound tenderness, nondistended, normoactive bowel sounds. No palpable organomegaly. MUSCULOSKELETAL: No joint swelling or deformity. EXTREMITIES: No cyanosis, clubbing, or pedal edema. NEUROLOGICAL: Gross neurological examination did not reveal any focal deficits. SKIN: No rashes. No petechiae Results CBC & Chem 7: 04/21/20 11:48 04/21/20 04:46 Labs: Abnormal Lab Results - Last 24 Hours (Table) 04/21/20 04/21/20 04/21/20 Range/Units 04:46 04:46 04:46 WBC 16.8 H (3.8-10.6) k/uL RDW 15.9 H (11.5-15.5) % Neutrophils # 13.7 H (1.3-7.7) k/uL Sodium 136 L (137-145) mmol/L Carbon Dioxide 20 L (22-30) mmol/L Glucose 111 H (74-99) mg/dL Urine Protein Trace H (Negative) Urine Ketones 1+ H (Negative) Urine Nitrite Positive H (Negative) Ur Leukocyte Esterase Moderate H (Negative) Urine WBC 31 H (0-5) /hpf Urine Bacteria Moderate H (None) /hpf Urine Mucus Occasional H (None) /hpf Thrombosis Risk Factor Assmnt - Choose All That Apply Any of the Below Risk Factors Present?: No Other Risk Factors: No Other congenital or acquired thrombophilia - If yes, enter type in comment: No Thrombosis Risk Factor Assessment Level: Very Low Risk Assessment and Plan Assessment: Most likely hemoperitoneum secondary to ruptured ovarian cyst with RLQ pain and tenderness.CT showing moderate amount of dense fluid within the abdomen and mainly in the pelvis, rule out ruptured hemorrhagic cyst or ectopic versus other acute urinary tract infection Nonobstructing left renal calculus Chronic leukocytosis History of postoperative hemorrhage secondary to section in 2014 Plan: This is a pleasant 24 years old female who presents with hemoperitoneum secondary to ruptured ovarian cyst and UTI. Switch her antibiotics back to ceftriaxone. Follow-up urine culture. Continue gentle hydration, follow-up recommendation by the HIGH RIGGER service. Monitor hemoglobin and any further episodes of bleeding. Surgery team on the case Labs and medication were reviewed.. Continue same treatment. Continue with symptomatic treatment. Resume home medication. Monitor lytes and vitals. DVT and GI prophylaxis. Further recommendations depends on the clinical course of the patient DVT prophylaxis:No anticoagulation in view of hemoperitoneum GI Prophylaxis: Pending Prognosis is guarded
[2020-04-21] MEDS ORDERED: IV FLUID CONTINUATION 1,000 ML IV ONE (15:13)
[2020-04-21] MEDS ORDERED: ACETAMINOPHEN IV (For NPO) 1,000 MG/100 ML VIAL ONE (16:22)
[2020-04-21] MEDS ORDERED: NEOSTIGMINE 1 MG/ML 10 ML VIAL ONE (16:22)
[2020-04-21] MEDS ORDERED: fentaNYL (PF) 50 MCG/ML 2 ML AMP ONE (16:22)
[2020-04-21] MEDS ORDERED: LIDOCAINE 1% INJ 10MG/ML (20 ML MDV) ONE (16:22)
[2020-04-21] MEDS ORDERED: PROPOFOL 10 MG/ML 20 ML VIAL IV ONE (16:22)
[2020-04-21] MEDS ORDERED: GLYCOPYRROLATE 0.2 MG/ML 2 ML VIAL ONE (16:22)
[2020-04-21] MEDS ORDERED: MIDAZOLAM 2 MG/2 ML VIAL ONE (16:22)
[2020-04-21] MEDS ORDERED: SUCCINYLCHOLINE CHLORIDE 100 MG/5 ML SYR IV ONE (16:22)
[2020-04-21] MEDS ORDERED: ROCURONIUM 10 MG/ML (10 ML VIAL) IV ONE (16:22)
[2020-04-21] MEDS ORDERED: ONDANSETRON 4 MG/2 ML VIAL IVP ONE (16:24)
[2020-04-21] MEDS ORDERED: DEXAMETHASONE SOD PHOSPHATE 4 MG/ML 1 ML VIAL IVP ONE (16:24)
--- NOTE | 2020-04-21 17:16 | P.OP ---
Date of Procedure: 04/21/20 Preoperative Diagnosis: Acute abdominal pain, hemoperitoneum Postoperative Diagnosis: Same. Procedure(s) Performed: Operative laparoscopy with evacuation of hemoperitoneum Anesthesia: GETA Surgeon: Chasidy Kothari Estimated Blood Loss (ml): 10 IV fluids (ml): 600 Urine output (ml): 100 Pathology: none sent Condition: stable Disposition: PACU Indications for Procedure: 24-year-old non female with known hemoperitoneum. Patient necessitating morphine throughout the day for pain relief, therefore patient was taken for a laparoscopy for evaluation of the pelvic anatomy. Operative Findings: Upon entering the abdomen the uterus wasnoted to be based in blood up to the bowel. Patients posterior cul-de-sac was filled with blood/clot. Uterus and ovaries appreciated and normal. Description of Procedure: Patient was seen in the preoperative area and informed consent was obtained procedure was reviewed and questions were answered. Patient was taken back to the operating suite where general anesthesia was obtained without difficulty by the anesthesia department. She was then prepped and draped in the normal sterile fashion in the dorsal lithotomy position. A red rubber catheter was then used to drain the bladder clear yellow urine. A weighted speculum was in the posterior vaginal vault and the anterior lip of the cervix was visualized and grasped with a single-tooth tenaculum. An acorn uterine manipulator was then advanced to the uterus as a means to miniplate uterus throughout the procedure. Attention was then turned to the patient's abdomen where in the umbilical fold a small skin incision is made. A Veress needle was then placed through the incision and CO2 insufflation was allowed to occur once it was deemed to be in the appropriate position with a drop of CO2 pressure with insufflation of CO2 gas. Approximately 3 L of gas were used to obtain pneumoperitoneum. At this time a 5 mm trocar and sleeve is placed to the skin incision with the laparoscope in place and toward the pneumoperitoneum. The above-noted findings are visualized. An additional port site is placed in the right lower quadrant under direct visualization. The suction eligibility specialist was then placed into the abdomen and the blood/clot is evacuated from the posterior cul-de-sac/pelvis No active bleeding was noted both ovaries were visualized. There were some bladder adhesions noted secondary to her prior history of 2 prior C-sections. Once no further bleeding was noted all instruments removed from the patient's abdomen the skin incisions were closed with 4-0 Vicryl in a subcuticular fashion Steri-Strips and Band-Aids were applied. Attention was then turned the patient's vaginal vault where the red rubber catheter was removed, the acorn uterine made layer was removed and the patient's cervix, the single-tooth tenaculum was removed without difficulty hemostasis was appreciated. Patient tolerated procedure well all counts were correct 2 at the end of the procedure patient was then taken to the recovery room awake in stable condition.
[2020-04-21] MEDS ORDERED: BUPIVACAINE (PF) 0.25% 30 ML VIAL SQ ONE (17:21)
[2020-04-21] MEDS ORDERED: SODIUM CHLORIDE 0.9% 1,000 ML IV ONE (17:47)
[2020-04-21] MEDS ORDERED: LACTATED RINGERS 1,000 ML IV ONE (17:47)
[2020-04-21 18:53] VITALS: TEMP 98.7
[2020-04-21] MEDS ORDERED: CEPHALEXIN 500 MG CAP PO ONE (23:00)
[2020-04-22] MEDS: SODIUM CHLORIDE 0.9% 1,000 ML IV SCH (00:22)
[2020-04-22] MEDS ORDERED: ACETAMINOPHEN TAB 325 MG TAB PO PRN (00:31)
[2020-04-22 02:49] VITALS: RESP 18
[2020-04-22] MEDS: FAMOTIDINE 20 MG/2 ML VIAL IV SCH (06:27)
[2020-04-22 06:49] LABS: Basophils % (A) 0 %; Eosinophils % (A) 0 %; HCT 33.2 % (34.0-46.0); HGB 11.1 gm/dL (11.4-16.0); Lymphocytes # (A) 1.8 k/uL (1.0-4.8); Lymphocytes % (A) 17 %; MCH 29.2 pg (25.0-35.0); MCHC 33.3 g/dL (31.0-37.0); MCV 87.6 fL (80.0-100.0); Mean Platelet Volume 7.4; Monocytes # (A) 0.5 k/uL (0-1.0); Monocytes % (A) 5 %; Neutrophils # (A) 7.9 k/uL (1.3-7.7); Neutrophils % (A) 76 %; Platelet Count 287 k/uL (150-450); RBC 3.79 m/uL (3.80-5.40); RDW 15.7 % (11.5-15.5); WBC 10.5 k/uL (3.8-10.6)
[2020-04-22] MEDS ORDERED: IBUPROFEN 400 MG TAB PO PRN (08:53)
[2020-04-22 09:39] VITALS: BP 135/73; PULSE 84
--- NOTE | 2020-04-22 23:32 | P.PN ---
Subjective This is a pleasant 24 years old female with no significant past medical history. She smokes cigarettes and marijuana with occasional alcohol. 2014 her severe dissection was complicated by postoperative hemorrhage secondary to bleeding Mr. which needed second exploratory laparotomy with bleeding controlled and bleeding vessel was clipped. She does not follow up with PCP This time she presents because of severe right lower quadrant pain, nonradiating started last night, felt like sharp associated with nausea but no vomiting. No diarrhea. She had little dysuria yesterday She smokes few cigarettes a day here and there, she is counseled and agrees to quit but denies nicotine patch. She drinks alcohol occasionally and she denies illicit tracts Vital signs stable. Labs showed leukocytosis of 16.8 K, looks like patient has chronic leukocytosis and 2014 at 12-21k and in 2018 around 14 K. Hemoglobin is normal at 13.2 BMP and liver enzymes are not elevated, lipase and amylase are within reference range, C-reactive protein is less than 5 and liver enzymes not elevated AST and ALT. Urine analysis is suspicious for infections with leukocyte esterase moderate and increased urine WBC 31. Coronal Verres not detected and urine hCG is not detected CT of the abdomen and pelvis with IV contrast: Nonobstructing left renal calculus intraperitoneally there is moderate amount of dense fluid within the abdomen and pelvis. Most hyperdense competent within the pelvis likely reflecting source in the pelvis and differential diagnosis included ruptured hemorrhagic cyst, ruptured ectopic , trauma or others per radiologist Transvaginal ultrasound: Cul-de-sac mass measuring up to 9.4 cm which is significant to differentiate from the ovaries. Suspicious for hemorrhagic fluid. Seismometer Operator evaluated the patient, patient has history of tubal ligation related to her last section about 7 months ago.no need for surgical int ervention per Seismometer Operator and most likely patient had hemoperitoneum secondary to ruptured ovarian cyst In the emergency room patient was started on ceftriaxone 1 and cefazolin and normal saline at 100 mL per hour. 04/22/2020 Patient evaluated by CRUTCHING CONTRACTOR service, she underwent Operative laparoscopy with evacuation of hemoperitoneum, no active bleeding was noted. Hemoglobin and vitals remained stable Today patient is awake, comfortable, no abdominal pain, abdominal exam is benign except for mild tenderness at procedure side which is expected. No other complaints, no nausea vomiting or diarrhea. She tolerates diet.. No chest pain or dyspnea UTI symptoms are improving on antibiotic and she is going to be discharged on Keflex upper recommendation of CRUTCHING CONTRACTOR primary team CRUTCHING CONTRACTOR team already discharge the patient from yesterday and the provided prescription for [place] and Keflex. Patient did not leave until today Patient was instructed to follow up with her PCP Dr. Samaniego within one week and she agrees Objective - Vital Signs Vital signs: Vital Signs Temp 98.7 F 04/22/20 08:28 Pulse 84 04/22/20 08:28 Resp 18 04/22/20 08:28 BP 135/73 04/22/20 08:28 Pulse Ox 99 04/22/20 08:28 Intake & Output 04/21/20 04/22/20 04/22/20 18:59 06:59 18:59 Intake Total 1900 240 Output Total 10 300 Balance 1890 -300 240 Weight 61.9 kg Intake: IV 1050 Intake, IV Titration 850 Amount Sodium Chloride 0.9% 1, 800 000 ml @ 100 mls/hr IV . Q10H [facility] Rx#:[id number] ceFAZolin 2 gm In Sodium 50 Chloride 0.9% 50 ml @ 100 mls/hr IVPB Q8HR [facility] Rx# :[id number] Oral 240 Output: Urine 300 Estimated Blood Loss 10 Other: Voiding Method Toilet # Voids 3 1 1 - Exam GENERAL: The patient is alert and oriented x3, not in any acute distress. Well developed, well nourished. HEENT: Pupils are round and equally reacting to light. EOMI. No scleral icterus. No conjunctival pallor. Normocephalic, atraumatic. No pharyngeal erythema. No thyromegaly. CARDIOVASCULAR: S1 and S2 present. No murmurs, rubs, or gallops. PULMONARY: Chest is clear to auscultation, no wheezing or crackles. ABDOMEN: Soft, nontender, nondistended, normoactive bowel sounds. No palpable organomegaly. MUSCULOSKELETAL: No joint swelling or deformity. EXTREMITIES: No cyanosis, clubbing, or pedal edema. NEUROLOGICAL: Gross neurological examination did not reveal any focal deficits. SKIN: No rashes. no petechiae. - Labs CBC & Chem 7: 04/22/20 06:32 04/21/20 04:46 Labs: Abnormal Lab Results - Last 24 Hours (Table) 04/22/20 Range/Units 06:32 RBC 3.79 L (3.80-5.40) m/uL Hgb 11.1 L (11.4-16.0) gm/dL Hct 33.2 L (34.0-46.0) % RDW 15.7 H (11.5-15.5) % Neutrophils # 7.9 H (1.3-7.7) k/uL Microbiology - Last 24 Hours (Table) 04/21/20 04:46 Urine Culture - Preliminary Urine,Clean Catch Assessment and Plan Assessment: hemoperitoneum secondary to ruptured ovarian cyst with RLQ pain and tenderness.CT showing moderate amount of dense fluid within the abdomen and mainly in the pelvis, acute urinary tract infection Nonobstructing left renal calculus Chronic leukocytosis History of postoperative hemorrhage secondary to section in 2014 Plan: This is a pleasant 24 years old female who presents with hemoperitoneum secondary to ruptured ovarian cyst and UTI. Switch her antibiotics back to ceftriaxone. Follow-up urine culture. Continue gentle hydration, follow-up rec ommendation by the CRUTCHING CONTRACTOR service. Monitor hemoglobin and any further episodes of bleeding. Surgery team on the case CRUTCHING CONTRACTOR team are discharging the patient.we Would recommend close outpatient follow-up. Labs and medication were reviewed.. Continue same treatment. Continue with symptomatic treatment. Resume home medication. Monitor lytes and vitals. DVT and GI prophylaxis. DVT prophylaxis:No anticoagulation in view of hemoperitoneum GI Prophylaxis: Pending Patient is medically stable
== END 2020-04-22 11:05 | disposition home or self-care (01) | DRG 746 ==
LOC: EC 04:09 → 6PED 06:24
PROVIDERS: ADMIT Obstetrics & Gynecology Obstetrics; ATTEND Obstetrics & Gynecology Obstetrics
PROC: 0W9N4ZZ Drainage of Female Perineum, Percutaneous Endoscopic Approach (ICD-10-PCS; principal; 2020-04-21 13:50)
DX: N83.209 Unspecified ovarian cyst, unspecified side (principal); K66.1 Hemoperitoneum; N39.0 Urinary tract infection, site not specified; Z71.6 Tobacco abuse counseling; F17.210 Nicotine dependence, cigarettes, uncomplicated; N20.0 Calculus of kidney; Z87.442 Personal history of urinary calculi; Z98.51 Tubal ligation status; Z98.891 History of uterine scar from previous surgery; D72.828 Other elevated white blood cell count; Z20.822 Contact with and (suspected) exposure to COVID-19
CPT/HCPCS: 36415; 74176; 76830; 80053; 81001; 81025; 82150; 83690; 85025; 85027; 86140; 87077; 87086; 87186; 87635; 96365; 96375; 99285

== ENCOUNTER 2020-12-08 09:53 | Inpatient (IN) | payer OTHER ==
[2020-12-08] MEDS ORDERED: SODIUM CHLORIDE 0.9% 1,000 ML IV STA (09:57)
--- NOTE | 2020-12-08 10:14 | ED ---
General Adult HPI - General Stated complaint: possible overdose Time Seen by Provider: 12/08/20 09:56 Source: patient, police, EMS, RN notes reviewed, old records reviewed Mode of arrival: EMS Limitations: no limitations - History of Present Illness Initial comments: 25-year-old female presents with overdose. Patient admits to taking approximately 20 Tylenol PM about 90 minutes prior to arrival in the emergency department. These were 500 mg of acetaminophen and 25 mg of diphenhydramine. She was transported by EMS. She was petitioned by police for suicide attempt. The only additional history the patient is willing to give is that she "has a lot going on". She denies pain complaints. - Related Data Home Medications Medication Instructions Recorded Confirmed No Known Home Medications 04/21/20 12/08/20 Allergies Allergy/AdvReac Type Severity Reaction Status Date / Time No Known Allergies Allergy Verified 12/08/20 11:05 Review of Systems ROS Statement: Those systems with pertinent positive or pertinent negative responses have been documented in the HPI. ROS Other: All systems not noted in ROS Statement are negative. Past Medical History Past Medical History: No Reported History Additional Past Medical History / Comment(s): kidney stones, History of Any Multi-Drug Resistant Organisms: None Reported Past Surgical History: Section Past Anesthesia/Blood Transfusion Reactions: No Reported Reaction Past Psychological History: No Psychological Hx Reported Smoking Status: Current some day smoker Past Alcohol Use History: Occasional Past Drug Use History: Marijuana - Past Family History Father Family Medical History: No Reported History Mother History Unknown: Yes Family Medical History: No Reported History General Exam Limitations: no limitations General appearance: in no apparent distress, lethargic Head exam: Present: atraumatic, normocephalic Eye exam: Present: normal appearance, PERRL ENT exam: Present: mucous membranes dry Neck exam: Present: normal inspection. Absent: tenderness, meningismus Respiratory exam: Present: normal lung sounds bilaterally. Absent: respiratory distress, wheezes Cardiovascular Exam: Present: normal rhythm, tachycardia GI/Abdominal exam: Present: soft. Absent: distended, tenderness, guarding Extremities exam: Present: normal inspection, normal capillary refill. Absent: pedal edema Neurological exam: Present: alert, oriented X3, CN II-XII intact. Absent: motor sensory deficit Psychiatric exam: Present: depressed, flat affect Skin exam: Present: warm, dry, intact, normal color. Absent: cyanosis, diaphoretic Course Vital Signs 12/08/20 12/08/20 12/08/20 09:56 10:10 10:30 Temperature 98.7 F Pulse Rate 145 H 141 H 146 H Respiratory 20 16 10 L Rate Blood Pressure 167/87 138/96 138/96 O2 Sat by Pulse 100 99 98 Oximetry 12/08/20 12/08/20 12/08/20 11:00 11:30 12:32 Temperature Pulse Rate 120 H 122 H 107 H Respiratory 10 L 10 L 18 Rate Blood Pressure 135/91 154/90 131/91 O2 Sat by Pulse 99 99 99 Oximetry 12/08/20 12:34 Temperature Pulse Rate 102 H Respiratory 18 Rate Blood Pressure 131/91 O2 Sat by Pulse 98 Oximetry - Reevaluation(s) Reevaluation #1: 12/08/20 11:22 Case discussed with poison control who recommends 4 hour Tylenol level, electrolyte management. Initial Tylenol level is 215 which is a toxic level, repeat pending in one hour, which will represent a four-hour Tylenol level. Reevaluation #2: 12/08/20 13:21 Four-hour Tylenol is 120, poison control does recommend treatment with N- acetylcysteine. This is just below the toxic range but is within 20 mcg/mL. 12/08/20 13:46 EKG Findings - EKG Comments: EKG Findings:: Sinus tachycardia, prolonged QTC, no ST segment elevation, rate of 145, FL interval 112, QRS duration 84 QTC 543. Repeat EKG obtained at 1308, sinus tachycardia, rate of 105, FL interval 136, QRS duration 76, QTC 494 improved. Medical Decision Making - Medical Decision Making 25-year-old female with Tylenol and Benadryl overdose, suicide attempt. Poison control had been contacted at the onset of the patient's presentation and treatment emergency department. Initial Tylenol level was 2:15, the 4 hour was 120. This is close but still under the toxic level. Given that this is close to the toxic level poison control did recommend an acetylcysteine treatment. Patient will be placed on IV treatment as well as IV hydration she will be monitored. Suicide precautions. She will be admitted to internal medicine with psychiatry on consult. - Lab Data Result diagrams: 12/08/20 10:04 12/08/20 10:04 Lab Results 12/08/20 12/08/20 12/08/20 Range/Units 10:04 10:04 10:04 WBC 11.6 H (3.8-10.6) k/uL RBC 4.85 (3.80-5.40) m/uL Hgb 14.2 (11.4-16.0) gm/dL Hct 44.4 (34.0-46.0) % MCV 91.4 (80.0-100.0) fL MCH 29.3 (25.0-35.0) pg MCHC 32.1 (31.0-37.0) g/dL RDW 14.4 (11.5-15.5) % Plt Count 369 (150-450) k/uL MPV 7.6 Neutrophils % 57 % Lymphocytes % 36 % Monocytes % 4 % Eosinophils % 1 % Basophils % 1 % Neutrophils # 6.6 (1.3-7.7) k/uL Lymphocytes # 4.2 (1.0-4.8) k/uL Monocytes # 0.4 (0-1.0) k/uL Eosinophils # 0.1 (0-0.7) k/uL Basophils # 0.1 (0-0.2) k/uL PT 10.6 (9.0-12.0) sec INR 1.0 (<1.2) Sodium (137-145) mmol/L Potassium (3.5-5.1) mmol/L Chloride (98-107) mmol/L Carbon Dioxide (22-30) mmol/L Anion Gap mmol/L BUN (7-17) mg/dL Creatinine (0.52-1.04) mg/dL Est GFR (CKD-EPI)AfAm (>60 ml/min/1.73 sqM) Est GFR (CKD-EPI)NonAf (>60 ml/min/1.73 sqM) Glucose (74-99) mg/dL Lactic Ac Sepsis Rflx Plasma Lactic Acid Armand (0.7-2.0) mmol/L Calcium (8.4-10.2) mg/dL Phosphorus (2.5-4.5) mg/dL Magnesium (1.6-2.3) mg/dL Total Bilirubin (0.2-1.3) mg/dL AST (14-36) U/L ALT (4-34) U/L Alkaline Phosphatase (38-126) U/L Creatine Kinase (30-135) U/L Total Protein (6.3-8.2) g/dL Albumin (3.5-5.0) g/dL Lipase (23-300) U/L Urine Color Light Yellow Urine Appearance Cloudy H (Clear) Urine pH 6.0 (5.0-8.0) Ur Specific [place] 1.016 (1.001-1.035) Urine Protein Negative (Negative) Urine Glucose (UA) Negative (Negative) Urine Ketones Negative (Negative) Urine Blood Large H (Negative) Urine Nitrite Positive H (Negative) Urine Bilirubin Negative (Negative) Urine Urobilinogen <2.0 (<2.0) mg/dL Ur Leukocyte Esterase Small H (Negative) Urine RBC 10 H (0-5) /hpf Urine WBC 27 H (0-5) /hpf Ur Squamous Epith Cells 1 (0-4) /hpf Urine Bacteria Many H (None) /hpf Urine Mucus Rare H (None) /hpf Urine HCG, Qual (Not Detectd) Salicylates mg/dL Urine Opiates Screen Not Detected (NotDetected) Ur Oxycodone Screen Not Detected (NotDetected) Urine Methadone Screen Not Detected (NotDetected) Ur Propoxyphene Screen Not Detected (NotDetected) Acetaminophen ug/mL Ur Barbiturates Screen Not Detected (NotDetected) U Tricyclic Antidepress Not Detected (NotDetected) Ur Phencyclidine Scrn Not Detected (NotDetected) Ur Amphetamines Screen Not Detected (NotDetected) U Methamphetamines Scrn Not Detected (NotDetected) U Benzodiazepines Scrn Not Detected (NotDetected) Urine Cocaine Screen Not Detected (NotDetected) U Marijuana (THC) Screen Detected H (NotDetected) Serum Alcohol mg/dL 12/08/20 12/08/20 12/08/20 Range/Units 10:04 10:04 10:04 WBC (3.8-10.6) k/uL RBC (3.80-5.40) m/uL Hgb (11.4-16.0) gm/dL Hct (34.0-46.0) % MCV (80.0-100.0) fL MCH (25.0-35.0) pg MCHC (31.0-37.0) g/dL RDW (11.5-15.5) % Plt Count (150-450) k/uL MPV Neutrophils % % Lymphocytes % % Monocytes % % Eosinophils % % Basophils % % Neutrophils # (1.3-7.7) k/uL Lymphocytes # (1.0-4.8) k/uL Monocytes # (0-1.0) k/uL Eosinophils # (0-0.7) k/uL Basophils # (0-0.2) k/uL PT (9.0-12.0) sec INR (<1.2) Sodium 139 (137-145) mmol/L Potassium 3.4 L (3.5-5.1) mmol/L Chloride 106 (98-107) mmol/L Carbon Dioxide 17 L (22-30) mmol/L Anion Gap 16 mmol/L BUN 16 (7-17) mg/dL Creatinine 0.74 (0.52-1.04) mg/dL Est GFR (CKD-EPI)AfAm >90 (>60 ml/min/1.73 sqM) Est GFR (CKD-EPI)NonAf >90 (>60 ml/min/1.73 sqM) Glucose 123 H (74-99) mg/dL Lactic Ac Sepsis Rflx Plasma Lactic Acid Arm[place] 3.1 H* (0.7-2.0) mmol/L Calcium 9.8 (8.4-10.2) mg/dL Phosphorus 2.9 (2.5-4.5) mg/dL Magnesium 1.6 (1.6-2.3) mg/dL Total Bilirubin 1.1 (0.2-1.3) mg/dL AST 23 (14-36) U/L ALT 17 (4-34) U/L Alkaline Phosphatase 59 (38-126) U/L Creatine Kinase 61 (30-135) U/L Total Protein 8.1 (6.3-8.2) g/dL Albumin 4.8 (3.5-5.0) g/dL Lipase 139 (23-300) U/L Urine Color Urine Appearance (Clear) Urine pH (5.0-8.0) Ur Specific [place] (1.001-1.035) Urine Protein (Negative) Urine Glucose (UA) (Negative) Urine Ketones (Negative) Urine Blood (Negative) Urine Nitrite (Negative) Urine Bilirubin (Negative) Urine Urobilinogen (<2.0) mg/dL Ur Leukocyte Esterase (Negative) Urine RBC (0-5) /hpf Urine WBC (0-5) /hpf Ur Squamous Epith Cells (0-4) /hpf Urine Bacteria (None) /hpf Urine Mucus (None) /hpf Urine HCG, Qual Not Detected (Not Detectd) Salicylates 1.1 mg/dL Urine Opiates Screen (NotDetected) Ur Oxycodone Screen (NotDetected) Urine Methadone Screen (NotDetected) Ur Propoxyphene Screen (NotDetected) Acetaminophen 215.2 H* ug/mL Ur Barbiturates Screen (NotDetected) U Tricyclic Antidepress (NotDetected) Ur Phencyclidine Scrn (NotDetected) Ur Amphetamines Screen (NotDetected) U Methamphetamines Scrn (NotDetected) U Benzodiazepines Scrn (NotDetected) Urine Cocaine Screen (NotDetected) U Marijuana (THC) Screen (NotDetected) Serum Alcohol <10 mg/dL 12/08/20 12/08/20 Range/Units 11:02 12:32 WBC (3.8-10.6) k/uL RBC (3.80-5.40) m/uL Hgb (11.4-16.0) gm/dL Hct (34.0-46.0) % MCV (80.0-100.0) fL MCH (25.0-35.0) pg MCHC (31.0-37.0) g/dL RDW (11.5-15.5) % Plt Count (150-450) k/uL MPV Neutrophils % % Lymphocytes % % Monocytes % % Eosinophils % % Basophils % % Neutrophils # (1.3-7.7) k/uL Lymphocytes # (1.0-4.8) k/uL Monocytes # (0-1.0) k/uL Eosinophils # (0-0.7) k/uL Basophils # (0-0.2) k/uL PT (9.0-12.0) sec INR (<1.2) Sodium (137-145) mmol/L Potassium (3.5-5.1) mmol/L Chloride (98-107) mmol/L Carbon Dioxide (22-30) mmol/L Anion Gap mmol/L BUN (7-17) mg/dL Creatinine (0.52-1.04) mg/dL Est GFR (CKD-EPI)AfAm (>60 ml/min/1.73 sqM) Est GFR (CKD-EPI)NonAf (>60 ml/min/1.73 sqM) Glucose (74-99) mg/dL Lactic Ac Sepsis Rflx Y Plasma Lactic Acid [place] (0.7-2.0) mmol/L Calcium (8.4-10.2) mg/dL Phosphorus (2.5-4.5) mg/dL Magnesium (1.6-2.3) mg/dL Total Bilirubin (0.2-1.3) mg/dL AST (14-36) U/L ALT (4-34) U/L Alkaline Phosphatase (38-126) U/L Creatine Kinase (30-135) U/L Total Protein (6.3-8.2) g/dL Albumin (3.5-5.0) g/dL Lipase (23-300) U/L Urine Color Urine Appearance (Clear) Urine pH (5.0-8.0) Ur Specific [place] (1.001-1.035) Urine Protein (Negative) Urine Glucose (UA) (Negative) Urine Ketones (Negative) Urine Blood (Negative) Urine Nitrite (Negative) Urine Bilirubin (Negative) Urine Urobilinogen (<2.0) mg/dL Ur Leukocyte Esterase (Negative) Urine RBC (0-5) /hpf Urine WBC (0-5) /hpf Ur Squamous Epith Cells (0-4) /hpf Urine Bacteria (None) /hpf Urine Mucus (None) /hpf Urine HCG, Qual (Not Detectd) Salicylates mg/dL Urine Opiates Screen (NotDetected) Ur Oxycodone Screen (NotDetected) Urine Methadone Screen (NotDetected) Ur Propoxyphene Screen (NotDetected) Acetaminophen 121.0 H* ug/mL Ur Barbiturates Screen (NotDetected) U Tricyclic Antidepress (NotDetected) Ur Phencyclidine Scrn (NotDetected) Ur Amphetamines Screen (NotDetected) U Methamphetamines Scrn (NotDetected) U Benzodiazepines Scrn (NotDetected) Urine Cocaine Screen (NotDetected) U Marijuana (THC) Screen (NotDetected) Serum Alcohol mg/dL Disposition Clinical Impression: Acetaminophen overdose, Suicide attempt Disposition: ADMITTED IP TO THIS [facility] Condition: Stable Is patient prescribed a controlled substance at d/c from ED?: No Referrals: None,Stated [Primary Care Provider] - 1-2 days Decision to Admit Reason: Admit from EC Decision Date: 12/08/20 Decision Time: 13:47
[2020-12-08 10:27] LABS: Basophils # (A) 0.1 k/uL (0-0.2); Basophils % (A) 1 %; Eosinophils # (A) 0.1 k/uL (0-0.7); Eosinophils % (A) 1 %; HCT 44.4 % (34.0-46.0); HGB 14.2 gm/dL (11.4-16.0); Lymphocytes # (A) 4.2 k/uL (1.0-4.8); Lymphocytes % (A) 36 %; MCH 29.3 pg (25.0-35.0); MCHC 32.1 g/dL (31.0-37.0); MCV 91.4 fL (80.0-100.0); Mean Platelet Volume 7.6; Monocytes # (A) 0.4 k/uL (0-1.0); Monocytes % (A) 4 %; Neutrophils # (A) 6.6 k/uL (1.3-7.7); Neutrophils % (A) 57 %; Platelet Count 369 k/uL (150-450); RBC 4.85 m/uL (3.80-5.40); RDW 14.4 % (11.5-15.5); WBC 11.6 k/uL (3.8-10.6)
[2020-12-08 10:35] LABS: Prothrombin Time 10.6 sec (9.0-12.0)
[2020-12-08 10:49] LABS: ALT 17 U/L (4-34); AST 23 U/L (14-36); African American GFR (CKD) >90 (>60 ml/min/1.73 sqM); Albumin 4.8 g/dL (3.5-5.0); Alcohol <10 mg/dL; Alkaline Phosphatase 59 U/L (38-126); Anion Gap 16 mmol/L; Blood Urea Nitrogen 16 mg/dL (7-17); Calcium 9.8 mg/dL (8.4-10.2); Carbon Dioxide 17 mmol/L (22-30); Chloride 106 mmol/L (98-107); Creatine Kinase 61 U/L (30-135); Glucose 123 mg/dL (74-99); Lipase 139 U/L (23-300); Magnesium 1.6 mg/dL (1.6-2.3); Non-African American GFR(CKD) >90 (>60 ml/min/1.73 sqM); Phosphorus 2.9 mg/dL (2.5-4.5); Potassium 3.4 mmol/L (3.5-5.1); Salicylate 1.1 mg/dL; Sodium 139 mmol/L (137-145); Total Bilirubin 1.1 mg/dL (0.2-1.3); Total Protein 8.1 g/dL (6.3-8.2)
[2020-12-08 11:28] LABS: Acetaminophen 215.2 ug/mL
[2020-12-08] MEDS: POTASSIUM CHLORIDE 10 MEQ in WATER FOR INJECTION 1 100ML.BAG IVPB SCH ×4 (11:40→15:33)
[2020-12-08] MEDS: SODIUM CHLORIDE 0.9% 1,000 ML IV SCH (11:40)
[2020-12-08 13:08] LABS: Appearance,Urine Cloudy (Clear); Bacteria,Urine Many /hpf; Bilirubin,Urine Negative (Negative); Blood,Urine Large (Negative); Color,Urine Light Yellow; Glucose,Urine (UA) Negative (Negative); Ketones,Urine Negative (Negative); Leukocyte Esterase,Urine Small (Negative); Mucus,Urine Rare /hpf; Nitrite,Urine Positive (Negative); Protein,Urine Negative (Negative); RBC,Urine 10 /hpf (0-5); Specific Gravity,Urine 1.016 (1.001-1.035); Squamous Epithelial Cell,Urine 1 /hpf (0-4); Urobilinogen,Urine <2.0 mg/dL (<2.0); WBC,Urine 27 /hpf (0-5)
[2020-12-08 13:14] LABS: Cocaine Screen,Urine Not Detected (NotDetected); Phencyclidine Screen,Urine Not Detected (NotDetected); Urn Cannabinoid Scrn Detected (NotDetected)
[2020-12-08 13:15] LABS: Amphetamine Screen,Urine Not Detected (NotDetected); Barbiturate Screen,Urine Not Detected (NotDetected); Benzodiazepines Screen,Urine Not Detected (NotDetected); Methadone Screen, Urine Not Detected (NotDetected); Opiate Screen,Urine Not Detected (NotDetected); Oxycodone Screen, Urine Not Detected (NotDetected); Tricyclic Antidepressant,Urine Not Detected (NotDetected)
[2020-12-08] MEDS ORDERED: cefTRIAXone IN SWFI 1,000 MG/10 ML SYRINGE IVP STA (13:21)
[2020-12-08] MEDS ORDERED: DEXTROSE 5% IV ONE ×2 (13:35)
[2020-12-08] MEDS ORDERED: WATER IV ONE ×2 (13:35)
[2020-12-08] MEDS ORDERED: ACETYLCYSTEINE IV ONE ×2 (13:35)
[2020-12-08] MEDS ORDERED: NALOXONE 0.4 MG/ML 1 ML VIAL IV PRN (13:44)
[2020-12-08] MEDS ORDERED: ACETYLCYSTEINE IV 3,000 MG in DEXTROSE 5% IN WATER 500 ML IV ONE ×2 (14:35)
--- NOTE | 2020-12-08 14:40 | P.HPIM ---
History of Present Illness This is a pleasant 25 years old female with no significant past medical history presents with Tylenol overdose with about 20 tablets with intervention to chromic suicide after she broke up recently, patient also states that there is a lot of things going on without specification. When I saw the patient she was fully awake and oriented, sitting up in bed, complaining of from nausea and vomited 3 times with no blood. Denies chest pain or coughing or dyspnea. Abdominal pain or diarrhea. No urinary complaints, she says that she started her period now. Also states that her tubes have been ligated She denies previous suicidal attempts. She smokes about 1 pack per week, she drinks alcohol occasionally and she smokes marijuana I discussed the plan with the patient and she agrees to stay in the hospital for now Patient is tachycardic with heart rate at 146 coming down to 102, a febrile and dressed of vitals are stable She had mild leukocytosis of 11.6 INR is 1.0. Potassium 3.4. Creatinine normal 0.7. Elevated lactic acid of 3.1 Liver enzymes elevated with AST 23 and ALT 17. Tylenol elevated 215 and 121 marijuana Urine analysis is suspicious for infection EKG showing sinus tachycardia and [address]-T changes and a QTC of 494 First EKG shows sinus tachycardia at [address]-T changes and QTC of 543 Covid test is pending An emergency room patient was started on an acetylcysteine and normal saline at 100 mL per hour Review of Systems CONSTITUTIONAL: No fever, no malaise, no fatigue. HEENT: No recent visual problems or hearing problems. Denied any sore throat. CARDIOVASCULAR: No orthopnea, PND, no palpitations, no syncope. PULMONARY: No shortness of breath, no cough, no hemoptysis. GASTROINTESTINAL: No diarrhea, no nausea, no vomiting, no abdominal pain. Normoactive bowel sounds. NEUROLOGICAL: No headaches, no weakness, no numbness. HEMATOLOGICAL: Denies any bleeding or petechiae. GENITOURINARY: Denies any burning micturition, frequency, or urgency. MUSCULOSKELETAL/RHEUMATOLOGICAL: Denies any joint pain, swelling, or any muscle pain. ENDOCRINE: Denies any polyuria or polydipsia. Past Medical History Past Medical History: No Reported History Additional Past Medical History / Comment(s): kidney stones, History of Any Multi-Drug Resistant Organisms: None Reported Past Surgical History: Section Past Anesthesia/Blood Transfusion Reactions: No Reported Reaction Past Psychological History: No Psychological Hx Reported Smoking Status: Current some day smoker Past Alcohol Use History: Occasional Past Drug Use History: Marijuana - Past Family History Father Family Medical History: No Reported History Mother History Unknown: Yes Family Medical History: No Reported History Medications and Allergies Home Medications Medication Instructions Recorded Confirmed Type No Known Home Medications 04/21/20 12/08/20 History Allergies Allergy/AdvReac Type Severity Reaction Status Date / Time No Known Allergies Allergy Verified 12/08/20 11:05 Physical Exam Vitals: Vital Signs Temp Pulse Resp BP Pulse Ox 12/08/20 12:34 102 H 18 131/91 98 12/08/20 12:32 107 H 18 131/91 99 12/08/20 11:30 122 H 10 L 154/90 99 12/08/20 11:00 120 H 10 L 135/91 99 12/08/20 10:30 146 H 10 L 138/96 98 12/08/20 10:10 141 H 16 138/96 99 12/08/20 09:56 98.7 F 145 H 20 167/87 100 Intake and Output 12/07/20 12/08/20 12/08/20 22:59 06:59 14:59 Other: Weight 58.967 kg GENERAL: The patient is alert and oriented x3, not in any acute distress. Well developed, well nourished. HEENT: Pupils are round and equally reacting to light. EOMI. No scleral icterus. No conjunctival pallor. Normocephalic, atraumatic. No pharyngeal erythema. No thyromegaly. CARDIOVASCULAR: S1 and S2 present. No murmurs, rubs, or gallops. PULMONARY: Chest is clear to auscultation, no wheezing or crackles. ABDOMEN: Soft, nontender, nondistended, normoactive bowel sounds. No palpable organomegaly. MUSCULOSKELETAL: No joint swelling or deformity. EXTREMITIES: No cyanosis, clubbing, or pedal edema. NEUROLOGICAL: Gross neurological examination did not reveal any focal deficits. SKIN: No rashes. No petechiae Results CBC & Chem 7: 12/08/20 10:04 12/08/20 10:04 Labs: Abnormal Lab Results - Last 24 Hours (Table) 12/08/20 12/08/20 12/08/20 Range/Units 10:04 10:04 10:04 WBC 11.6 H (3.8-10.6) k/uL Potassium 3.4 L (3.5-5.1) mmol/L Carbon Dioxide 17 L (22-30) mmol/L Glucose 123 H (74-99) mg/dL Plasma Lactic Acid [place] (0.7-2.0) mmol/L Urine Appearance Cloudy H (Clear) Urine Blood Large H (Negative) Urine Nitrite Positive H (Negative) Ur Leukocyte Esterase Small H (Negative) Urine RBC 10 H (0-5) /hpf Urine WBC 27 H (0-5) /hpf Urine Bacteria Many H (None) /hpf Urine Mucus Rare H (None) /hpf Acetaminophen 215.2 H* ug/mL U Marijuana (THC) Screen Detected H (NotDetected) 12/08/20 12/08/20 Range/Units 10:04 12:32 WBC (3.8-10.6) k/uL Potassium (3.5-5.1) mmol/L Carbon Dioxide (22-30) mmol/L Glucose (74-99) mg/dL Plasma Lactic Acid [place] 3.1 H* (0.7-2.0) mmol/L Urine Appearance (Clear) Urine Blood (Negative) Urine Nitrite (Negative) Ur Leukocyte Esterase (Negative) Urine RBC (0-5) /hpf Urine WBC (0-5) /hpf Urine Bacteria (None) /hpf Urine Mucus (None) /hpf Acetaminophen 121.0 H* ug/mL U Marijuana (THC) Screen (NotDetected) Assessment and Plan Assessment: Tylenol overdose Suicide attempt Severe depression Possible Contaminated urine sample from her. Rather than acute urinary tract infection Possible sepsis with mild leukocytosis and tachycardia Dehydration Substance abuse with marijuana Nicotine dependence Plan: this is a pleasant 25 years old female who presents with Tylenol overdose Continue to with acetylcysteine and normal saline, aggressive hydration Monitor liver enzymes and electrolytes IV hydration Consults, patient already has been petitioned by police checked pronecalcitonin Labs and medication were reviewed.. Continue same treatment. Continue with symptomatic treatment. Resume home medication. Monitor lytes and vitals. DVT and GI prophylaxis. Further recommendations depends on the clinical course of the patient DVT prophylaxis: Subcutaneous heparin GI Prophylaxis: Pepcid Discussed with bed side nurse Missy
[2020-12-08 16:09] LABS: ALT 17 U/L (4-34); AST 18 U/L (14-36); Albumin 4.2 g/dL (3.5-5.0); Alkaline Phosphatase <20 U/L (38-126); Bilirubin, Delta 0.1 mg/dL (0.0-0.2); Bilirubin,Unconjugated 0.5 mg/dL (0.0-1.1); Total Bilirubin 0.6 mg/dL (0.2-1.3)
[2020-12-08 16:10] LABS: HCG,Qualitative Serum Not Detected
[2020-12-08] MEDS ORDERED: ACETYLCYSTEINE IV 6,000 MG in DEXTROSE 5% IN WATER 1,000 ML IV ONE ×2 (18:35)
[2020-12-08] MEDS: HEPARIN SODIUM,PORCINE/PF 5,000 UNIT/0.5 ML SYRINGE SQ SCH (20:27)
[2020-12-08] MEDS: FAMOTIDINE 20 MG/2 ML VIAL IV SCH (20:27)
[2020-12-09 06:51] LABS: INR 1.1 (<1.2); Prothrombin Time 11.9 sec (9.0-12.0)
[2020-12-09] MEDS: SODIUM CHLORIDE 0.9% 1,000 ML IV SCH ×3 (07:40→17:44)
[2020-12-09 07:46] LABS: ALT 13 U/L (4-34); AST 18 U/L (14-36); Acetaminophen <10.0 ug/mL; African American GFR (CKD) >90 (>60 ml/min/1.73 sqM); Albumin 3.6 g/dL (3.5-5.0); Albumin/Globulin Ratio 1.3; Alkaline Phosphatase 36 U/L (38-126); Anion Gap 7 mmol/L; Blood Urea Nitrogen 7 mg/dL (7-17); Carbon Dioxide 20 mmol/L (22-30); Chloride 107 mmol/L (98-107); Globulin 2.8 g/dL; Glucose 96 mg/dL (74-99); Magnesium 1.9 mg/dL (1.6-2.3); Non-African American GFR(CKD) >90 (>60 ml/min/1.73 sqM); Potassium 3.9 mmol/L (3.5-5.1); Sodium 134 mmol/L (137-145); Total Bilirubin 0.5 mg/dL (0.2-1.3); Total Protein 6.4 g/dL (6.3-8.2)
[2020-12-09 09:18] LABS: Basophils # (A) 0.08 X 10*3/uL (0.00-0.10); Eosinophils # (A) 0.06 X 10*3/uL (0.04-0.35); Eosinophils % (A) 0.8 %; HCT 36.7 % (37.2-46.3); HGB 11.8 g/dL (12.0-15.0); Lymphocytes # (A) 3.77 X 10*3/uL (0.90-5.00); Lymphocytes % (A) 47.7 %; MCH 28.3 pg (27.0-32.0); MCHC 32.2 g/dL (32.0-37.0); Mean Platelet Volume 10.3 fL (9.5-12.2); Monocytes # (A) 0.72 X 10*3/uL (0.20-1.00); Monocytes % (A) 9.1 %; Neutrophils # (A) 3.26 X 10*3/uL (1.80-7.70); Neutrophils % (A) 41.1 %; Platelet Count 306 X 10*3/uL (140-440); RBC 4.17 X 10*6/uL (4.10-5.20); RDW 14.5 % (11.5-14.5); WBC 7.91 X 10*3/uL (4.50-10.00)
[2020-12-09 11:29] LABS: Appearance,Urine Clear (Clear); Bilirubin,Urine Negative (Negative); Blood,Urine Moderate (Negative); Color,Urine Colorless; Glucose,Urine (UA) Negative (Negative); Ketones,Urine Negative (Negative); Leukocyte Esterase,Urine Trace (Negative); Nitrite,Urine Negative (Negative); Protein,Urine Negative (Negative); RBC,Urine <1 /hpf (0-5); Specific Gravity,Urine 1.004 (1.001-1.035); Squamous Epithelial Cell,Urine 1 /hpf (0-4); Urobilinogen,Urine <2.0 mg/dL (<2.0); WBC,Urine 4 /hpf (0-5)
[2020-12-09] MEDS: HEPARIN SODIUM,PORCINE/PF 5,000 UNIT/0.5 ML SYRINGE SQ SCH ×2 (11:39→21:13)
[2020-12-09] MEDS: FAMOTIDINE 20 MG/2 ML VIAL IV SCH ×2 (11:39→21:13)
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
--- NOTE | 2020-12-09 13:28 | P.PN ---
Subjective This is a pleasant 25 years old female with no significant past medical history presents with Tylenol overdose with about 20 tablets with intervention to chromic suicide after she broke up recently, patient also states that there is a lot of things going on without specification. When I saw the patient she was fully awake and oriented, sitting up in bed, complaining of from nausea and vomited 3 times with no blood. Denies chest pain or coughing or dyspnea. Abdominal pain or diarrhea. No urinary complaints, she says that she started her period now. Also states that her tubes have been ligated She denies previous suicidal attempts. She smokes about 1 pack per week, she drinks alcohol occasionally and she smokes marijuana I discussed the plan with the patient and she agrees to stay in the hospital for now Patient is tachycardic with heart rate at 146 coming down to 102, a febrile and dressed of vitals are stable She had mild leukocytosis of 11.6 INR is 1.0. Potassium 3.4. Creatinine normal 0.7. Elevated lactic acid of 3.1 Liver enzymes elevated with AST 23 and ALT 17. Tylenol elevated 215 and 121 marijuana Urine analysis is suspicious for infection EKG showing sinus tachycardia and [address]-T changes and a QTC of 494 First EKG shows sinus tachycardia at [address]-T changes and QTC of 543 Covid test is pending An emergency room patient was started on an acetylcysteine and normal saline at 100 mL per hour 12/09/2020 Patient is awake and alert, she denies any chest pain or dyspnea. No abdominal pain. Her nausea and vomiting were stopped. Vitals are stable CBC is unremarkable, hemoglobin is 11.8 compared to 14.2 yesterday INR is 1.1. Sodium is 134, creatinine is normal. Liver enzymes remain normal with AST 18 and ALT 13. Repeat urine analysis looks better with only moderate blood most likely this is contamination from her menstrual period which started 1-2 days ago We will repeat liver enzymes. Acetaminophen level less than 10. And pending psych team evaluation for her suicidal attempt Objective - Vital Signs Vital signs: Vital Signs Temp 97.8 F 12/09/20 07:41 Pulse 78 12/09/20 11:35 Resp 18 12/09/20 11:35 BP 125/79 12/09/20 11:35 Pulse Ox 98 12/09/20 11:35 Intake & Output 12/08/20 12/09/20 12/09/20 18:59 06:59 18:59 Weight 58.967 kg - Exam GENERAL: The patient is alert and oriented x3, not in any acute distress. Well developed, well nourished. HEENT: Pupils are round and equally reacting to light. EOMI. No scleral icterus. No conjunctival pallor. Normocephalic, atraumatic. No pharyngeal erythema. No thyromegaly. CARDIOVASCULAR: S1 and S2 present. No murmurs, rubs, or gallops. PULMONARY: Chest is clear to auscultation, no wheezing or crackles. ABDOMEN: Soft, nontender, nondistended, normoactive bowel sounds. No palpable organomegaly. MUSCULOSKELETAL: No joint swelling or deformity. EXTREMITIES: No cyanosis, clubbing, or pedal edema. NEUROLOGICAL: Gross neurological examination did not reveal any focal deficits. SKIN: No rashes. no petechiae. - Labs CBC & Chem 7: 12/09/20 06:10 12/09/20 06:10 Labs: Abnormal Lab Results - Last 24 Hours (Table) 12/08/20 12/09/20 12/09/20 Range/Units 15:47 06:10 06:10 Hgb 11.8 L (12.0-15.0) g/dL Hct 36.7 L (37.2-46.3) % Sodium 134 L (137-145) mmol/L Carbon Dioxide 20 L (22-30) mmol/L Alkaline Phosphatase <20 L 36 L (38-126) U/L Urine Blood (Negative) Ur Leukocyte Esterase (Negative) 12/09/20 Range/Units 10:57 Hgb (12.0-15.0) g/dL Hct (37.2-46.3) % Sodium (137-145) mmol/L Carbon Dioxide (22-30) mmol/L Alkaline Phosphatase (38-126) U/L Urine Blood Moderate H (Negative) Ur Leukocyte Esterase Trace H (Negative) Microbiology - Last 24 Hours (Table) 12/08/20 10:04 Urine Culture - Preliminary Urine,Clean Catch Assessment and Plan Assessment: Tylenol overdose Suicide attempt Severe depression Possible Contaminated urine sample from her menstrual cycle Dehydration , improved Substance abuse with marijuana Nicotine dependence Plan: this is a pleasant 25 years old female who presents with Tylenol overdose Continue to with acetylcysteine and to finish per protocol Monitor liver enzymes and electrolytes IV hydration Psychiatric consult. Labs and medication were reviewed.. Continue same treatment. Continue with symptomatic treatment. Resume home medication. Monitor lytes and vitals. DVT and GI prophylaxis. Further recommendations depends on the clinical course of the patient DVT prophylaxis: Subcutaneous heparin GI Prophylaxis: Pepcid
[2020-12-09 14:21] LABS: Albumin 3.5 g/dL (3.5-5.0); Albumin/Globulin Ratio 1.3; Bilirubin,Unconjugated 0.3 mg/dL (0.0-1.1); Globulin 2.8 g/dL; Total Bilirubin 0.5 mg/dL (0.2-1.3); Total Protein 6.3 g/dL (6.3-8.2)
[2020-12-10 07:07] LABS: ALT 16 U/L (4-34); AST 21 U/L (14-36); African American GFR (CKD) >90 (>60 ml/min/1.73 sqM); Albumin 3.7 g/dL (3.5-5.0); Albumin/Globulin Ratio 1.4; Alkaline Phosphatase 40 U/L (38-126); Anion Gap 7 mmol/L; Blood Urea Nitrogen 8 mg/dL (7-17); Calcium 9.2 mg/dL (8.4-10.2); Carbon Dioxide 23 mmol/L (22-30); Chloride 108 mmol/L (98-107); Globulin 2.7 g/dL; Glucose 88 mg/dL (74-99); Non-African American GFR(CKD) >90 (>60 ml/min/1.73 sqM); Potassium 4.3 mmol/L (3.5-5.1); Sodium 138 mmol/L (137-145); Total Bilirubin 0.5 mg/dL (0.2-1.3); Total Protein 6.4 g/dL (6.3-8.2)
[2020-12-10 07:29] VITALS: BP 113/69; PULSE 65; RESP 17; TEMP 98.6
[2020-12-10] MEDS: HEPARIN SODIUM,PORCINE/PF 5,000 UNIT/0.5 ML SYRINGE SQ SCH (08:58)
[2020-12-10] MEDS: FAMOTIDINE 20 MG/2 ML VIAL IV SCH (08:58)
== END 2020-12-10 14:29 | disposition home or self-care (01) | DRG 917 ==
LOC: EC 09:53 → 3SCARD 13:48 → 4SSUR 19:26
PROVIDERS: ADMIT Internal Medicine; ATTEND Internal Medicine
DX: T39.1X2A Poisoning by 4-Aminophenol derivatives, intentional self-harm, initial encounter (principal); A41.9 Sepsis, unspecified organism; T45.0X2A Poisoning by antiallergic and antiemetic drugs, intentional self-harm, initial encounter; F32.9 Major depressive disorder, single episode, unspecified; E86.0 Dehydration; R60.0 Localized edema; F12.90 Cannabis use, unspecified, uncomplicated; F17.210 Nicotine dependence, cigarettes, uncomplicated; Z20.822 Contact with and (suspected) exposure to COVID-19; Z87.442 Personal history of urinary calculi; Z91.5 Personal history of self-harm
CPT/HCPCS: 36415; 80053; 80076; 80143; 80179; 80306; 80320; 81001; 81025; 82075; 82550; 83605; 83690; 83735; 84100; 84145; 84703; 85025; 85610; 87077; 87086; 87186; 87635; 93005; 96361; 96365; 96366; 96367; 96375; 99285

== ENCOUNTER 2022-06-13 21:49 | Emergency (ER) | payer OTHER ==
[2022-06-13 22:04] VITALS: BP 134/82; PULSE 113; RESP 20; TEMP 98.3
[2022-06-13 23:52] LABS: Appearance,Urine Clear (Clear); Bacteria,Urine Few /hpf; Bilirubin,Urine Negative (Negative); Blood,Urine Negative (Negative); Color,Urine Light Yellow; Glucose,Urine (UA) Negative (Negative); Ketones,Urine Negative (Negative); Leukocyte Esterase,Urine Moderate (Negative); Mucus,Urine Rare /hpf; Nitrite,Urine Negative (Negative); Protein,Urine Negative (Negative); RBC,Urine 1 /hpf (0-5); Specific Gravity,Urine 1.004 (1.001-1.035); Squamous Epithelial Cell,Urine 1 /hpf (0-4); Urobilinogen,Urine <2.0 mg/dL (<2.0); WBC,Urine 3 /hpf (0-5)
--- NOTE | 2022-06-14 00:21 | ED ---
General Adult HPI - General Chief complaint: Abdominal Pain Stated complaint: ABD Pain Time Seen by Provider: 06/13/22 23:01 Source: patient Mode of arrival: ambulatory Limitations: no limitations - History of Present Illness Initial comments: Patient is a 26-year-old female presenting with concern for tampon that has been forgotten in the vaginal canal. Patient states that 3 weeks ago when she was on her. She was drinking and does not remember if she took her tampon out. She states that she was starting to get some lower abdominal cramping as well as a foul vaginal discharge and odor. She states that when she inserted her fingers to check she could not feel the tampon. Patient states that today when she continued to have the symptoms, she checked herself again and thought that she could feel the tampon but could not remove it herself. She admits to dysuria. No fevers or chills. No nausea or vomiting. No dizziness or lightheadedness. No chest pain or difficulty breathing. No palpitations or weakness. - Related Data Previous Rx's Medication Instructions Recorded Cephalexin [Keflex] 500 mg PO Q8HR 1 Days #21 cap 12/10/20 Nitrofurantoin Monohyd/M-Cryst 100 mg PO Q12HR 5 Days #10 cap 06/14/22 [Macrobid] metroNIDAZOLE [Flagyl] 500 mg PO BID 7 Days #14 tab 06/14/22 Allergies Allergy/AdvReac Type Severity Reaction Status Date / Time No Known Allergies Allergy Verified 06/13/22 22:04 Review of Systems ROS Statement: Those systems with pertinent positive or pertinent negative responses have been documented in the HPI. ROS Other: All systems not noted in ROS Statement are negative. Past Medical History Past Medical History: No Reported History Additional Past Medical History / Comment(s): kidney stones, History of Any Multi-Drug Resistant Organisms: None Reported Past Surgical History: Section, Tubal Ligation Additional Past Surgical History / Comment(s): c-sections x 2 Past Anesthesia/Blood Transfusion Reactions: No Reported Reaction Past Psychological History: No Psychological Hx Reported Smoking Status: Current some day smoker, Vaper Past Alcohol Use History: Occasional Past Drug Use History: Marijuana - Past Family History Father Family Medical History: No Reported History Mother History Unknown: Yes Family Medical History: No Reported History General Exam Limitations: no limitations General appearance: alert, in no apparent distress Head exam: Present: atraumatic, normocephalic, normal inspection Eye exam: Present: normal appearance Neck exam: Present: normal inspection, full ROM Respiratory exam: Present: normal lung sounds bilaterally. Absent: respiratory distress, wheezes, rales, rhonchi, stridor Cardiovascular Exam: Present: regular rate, normal rhythm, normal heart sounds. Absent: systolic murmur, diastolic murmur, rubs, gallop, clicks GI/Abdominal exam: Present: soft. Absent: distended, tenderness, guarding, rebound, rigid External exam: Present: normal external exam Speculum exam: Present: foreign body (tampon) Neurological exam: Present: alert, oriented X3, CN II-XII intact Psychiatric exam: Present: normal affect, normal mood Skin exam: Present: warm, dry, intact, normal color. Absent: rash Course Vital Signs 06/13/22 22:01 Temperature 98.3 F Pulse Rate 113 H Respiratory 20 Rate Blood Pressure 134/82 O2 Sat by Pulse 97 Oximetry Medical Decision Making - Medical Decision Making Was pt. sent in by a medical professional or institution (, PA, DOOR FITTER, urgent care, hospital, or fdc...) When possible be specific @ -No Did you speak to anyone other than the patient for history (EMS, parent, family, police, friend...)? What history was obtained from this source @ -No Did you review nursing and triage notes (agree or disagree)? Why? @ -I reviewed and agree with nursing and triage notes Were old charts reviewed (outside hosp., previous admission, EMS record, old EKG, old radiological studies, urgent care reports/EKG's, fdc records)? Report findings @ -No old charts were reviewed Differential Diagnosis (chest pain, altered mental status, abdominal pain women, abdominal pain men, vaginal bleeding, weakness, fever, dyspnea, syncope, headache, dizziness, GI bleed, back pain, seizure, CVA, palpatations, mental health, musculoskeletal)? @ Differential includes vaginal foreign body, PID, STI, UTI, bacterial vaginosis, and this is not an all inclusive list EKG interpreted by me (3pts min.). @ -As above X-rays interpreted by me (1pt min.). @ -None done CT interpreted by me (1pt min.). @ -None done U/S interpreted by me (1pt. min.). @ -None done What testing was considered but not performed or refused? (CT, X-rays, U/S, labs)? Why? @ -None What meds were considered but not given or refused? Why? @ -None Did you discuss the management of the patient with other professionals (professionals i.e. Dr., PA, DOOR FITTER, lab, RT, psych nurse, social media assistant, sales and retail management recruiter, teacher, admitting officer, case operator)? Give summary @ -No Was smoking cessation discussed for >3mins.? @ -No Was critical care preformed (if so, how long)? @ -No Were there social determinants of health that impacted care today? How? (Homelessness, low income, unemployed, alcoholism, drug addiction, transportation, low edu. Level, literacy, decrease access to med. care, retirement, rehab)? @ -No Was there de-escalation of care discussed even if they declined (Discuss DNR or withdrawal of care, Hospice)? DNR status @ -No What co-morbidities impacted this encounter? (DM, HTN, Smoking, COPD, CAD, Cancer, CVA, ARF, Chemo, Hep., AIDS, mental health diagnosis, sleep apnea, morbid obesity)? @ -None Was patient admitted / discharged? Hospital course, mention meds given and route, prescriptions, significant lab abnormalities, going to OR and other pertinent info. @ -Patient is 26-year-old female presenting with concerns for vaginal foreign body. Patient believes she has a tampon stuck in the vagina. Believes it to have been there for the last 3 weeks. She admits to follow vaginal discharge and odor as well as some dysuria and lower abdominal discomfort. On examination I am able to visualize the tampon and remove it from the vaginal canal. Urine shows moderate leukocytes with few bacteria and negative hCG, given the patient's symptoms we will treat with Macrobid at this time. Patient was also started on metronidazole. Patient is educated on alarms symptoms and symptoms of toxic shock syndrome. Follow-up with PCP and TIME BUYER. Report back to ER with any new or worsening symptoms. Discussed return parameters and answered all questions. Patient conveyed verbal understanding and agreed to the plan. I discussed this case in detail with my attending Dr. Dash Undiagnosed new problem with uncertain prognosis? @ -No Drug Therapy requiring intensive monitoring for toxicity (Heparin, Nitro, Insulin, Cardizem)? @ -No Were any procedures done? @ -Vaginal foreign body removed Diagnosis/symptom? @ -Vaginal foreign body Acute, or Chronic, or Acute on Chronic? @ -Acute Uncomplicated (without systemic symptoms) or Complicated (systemic symptoms)? @ -Uncomplicated Side effects of treatment? @ -No Exacerbation, Progression, or Severe Exacerbation? @ -No Poses a threat to life or bodily function? How? (Chest pain, [place], [place], pneumonia, PE, COPD, DKA, ARF, appy, cholecystitis, CVA, Diverticulitis, Homicidal, Suicidal, threat to staff... and all critical care pts) @ -No - Lab Data Lab Results 06/13/22 06/13/22 Range/Units 23:06 23:06 Urine Color Light Yellow Urine Appearance Clear (Clear) Urine pH 6.0 (5.0-8.0) Ur Specific [place] 1.004 (1.001-1.035) Urine Protein Negative (Negative) Urine Glucose (UA) Negative (Negative) Urine Ketones Negative (Negative) Urine Blood Negative (Negative) Urine Nitrite Negative (Negative) Urine Bilirubin Negative (Negative) Urine Urobilinogen <2.0 (<2.0) mg/dL Ur Leukocyte Esterase Moderate H (Negative) Urine RBC 1 (0-5) /hpf Urine WBC 3 (0-5) /hpf Ur Squamous Epith Cells 1 (0-4) /hpf Urine Bacteria Few H (None) /hpf Urine Mucus Rare H (None) /hpf Urine HCG, Qual Not Detected (Not Detectd) Disposition Clinical Impression: UTI (urinary tract infection), Vaginal foreign body Disposition: HOME SELF-CARE Condition: Good Instructions (If sedation given, give patient instructions): Urinary Tract Infection in Women (ED), Vaginal Foreign Body (ED) Additional Instructions: Follow-up with PCP and/or TIME BUYER. Report back to ER with any new or worsening symptoms. Take medication as prescribed. Prescriptions: metroNIDAZOLE [Flagyl] 500 mg PO BID 7 Days #14 tab Nitrofurantoin Monohyd/M-Cryst [Macrobid] 100 mg PO Q12HR 5 Days #10 cap Is patient prescribed a controlled substance at d/c from ED?: No Referrals: None,Stated [Primary Care Provider] - 1-2 days Sherita Russo MD [STAFF PHYSICIAN] - 1-2 days Time of Disposition: 00:19
== END 2022-06-14 00:49 | disposition home or self-care (01) ==
LOC: EC 21:49
DX: T19.2XXA Foreign body in vulva and vagina, initial encounter (principal); N39.0 Urinary tract infection, site not specified; F17.290 Nicotine dependence, other tobacco product, uncomplicated; F12.90 Cannabis use, unspecified, uncomplicated
CPT/HCPCS: 81001; 81025; 87070; 99284